=== PATIENT | female | born 1955 | race Caucasian/White ===

== ENCOUNTER 2020-11-07 13:04 | Outpatient (REF) | payer MEDICARE, MEDICAID, SELFPAY ==
--- NOTE | ~2020-11-07 | US_ITS ---
EXAMINATION: US SOFT TISSUE EXTREMITY, LEFT LOWER CLINICAL INFORMATION: Posterior left knee pain. Assess for popliteal fossa cyst. COMPARISON: Radiographs left knee 01/03/2018 TECHNIQUE: Real-time linear imaging of the left lower extremity is targeted to the popliteal fossa. Grayscale imaging and color Doppler are performed. FINDINGS: There is a small popliteal fossa cyst measuring only 0.7 x 2.2 x 1.6 cm. There is no associated color flow or hyperemia. No solid mass. No fluid seen tracking in soft tissue planes. US/US extremity nonvascular IMPRESSION: Small popliteal fossa cyst measuring only 0.7 x 2.2 x 1.6 cm.
== END 2020-11-07 13:05 | disposition home or self-care (01) ==
LOC: HO.US 13:04
PROVIDERS: Visit Provider Internal Medicine
DX: M25.562 Pain in left knee (principal)
CPT/HCPCS: 76882

== ENCOUNTER 2020-12-07 07:28 | Outpatient (REF) | payer MEDICARE, MEDICAID, SELFPAY ==
--- NOTE | ~2020-12-07 | XR_ITS ---
EXAMINATION: XR KNEE STANDING, BILATERAL XR KNEE, LEFT CLINICAL INFORMATION: Left knee pain. COMPARISON: 01/03/2018 TECHNIQUE: Standing AP view of both knees with lateral and patellar views of the left knee. FINDINGS: There is severe joint space narrowing about the medial joint space of the right knee with some marginal spurring. There is mild narrowing of the lateral joint space compartment of the right knee. Patient is status post left total knee arthroplasty with prosthetic components in good position. No evidence of prosthetic loosening. There is a minimal suprapatellar effusion seen. XR/XR knee LT 2V IMPRESSION: No significant change in appearance of the left knee status post total knee arthroplasty. Small left knee effusion. Degenerative change of the right knee on AP view, most significant involving the medial joint space compartment.
--- NOTE | ~2020-12-07 | XR_ITS ---
EXAMINATION: XR KNEE STANDING, BILATERAL XR KNEE, LEFT CLINICAL INFORMATION: Left knee pain. COMPARISON: 01/03/2018 TECHNIQUE: Standing AP view of both knees with lateral and patellar views of the left knee. FINDINGS: There is severe joint space narrowing about the medial joint space of the right knee with some marginal spurring. There is mild narrowing of the lateral joint space compartment of the right knee. Patient is status post left total knee arthroplasty with prosthetic components in good position. No evidence of prosthetic loosening. There is a minimal suprapatellar effusion seen. XR/XR knee standing BI IMPRESSION: No significant change in appearance of the left knee status post total knee arthroplasty. Small left knee effusion. Degenerative change of the right knee on AP view, most significant involving the medial joint space compartment.
== END 2020-12-07 07:29 | disposition home or self-care (01) ==
LOC: HO.HOSX 07:28
PROVIDERS: Visit Provider Physician Assistant
DX: T84.033A Mechanical loosening of internal left knee prosthetic joint, initial encounter (principal); T84.89XA Other specified complication of internal orthopedic prosthetic devices, implants and grafts, initial encounter; Z96.659 Presence of unspecified artificial knee joint
CPT/HCPCS: 73560; 73565; Q3014

== ENCOUNTER 2021-01-24 08:00 | Outpatient (RCR) | payer MEDICARE, MEDICAID, SELFPAY ==
--- NOTE | 2020-12-21 12:22 | MHC.PT.EP ---
[facility] [place] Office [place] Office [place] Office [address] Prashant Piper [address] [phone] F: [phone] F: [phone] F: [phone] F: [phone] Physical Therapy Plan of Care Date of Evaluation: Date of Surgery: 2016 Diagnosis: loose left TKA, post op stiffness replacement Assessment: The patient arrived reporting decreased ROM and strength in her left knee that is significantly reducing her functional mobility. She is unable to do her normal daily activities without severe modification. She is concerned as it seems to be getting worse. She would benefit from regular progressive stretching, patellar mobilizations, and quad and hamstring strengthening. However, the length of time it has been contracted will limit our improvement. In addition the patient has severe pain and she was self limiting to how much I could stretch her today. Frequency and Duration: The patient will be seen 2x/week x 4 weeks. Short Term Goals: 1. Pt to demonstrate understanding of initial HEP. 2. pt to be able to negotiate a 6 inch step safely for community ambulation 3. Pt to be able to demonstrate a proper heel to toe gait pattern using a SPC. Fdc Goals: 1. Pt to use LRAD that improves her gait pattern to decrease strain to lumbar. 2. The patient to be able to squat and bend for functional tasks without pain or ROM limitation. Treatment Plan: Modalities to reduce pain, spasms and effusion. Manual therapy to restore motion and function. Therapeutic exercise to improve strength and flexibility. Neuromuscular re-education for posture and balance. Therapeutic activities to return to functional activities of daily living. Electronically signed by: Kelly Lopez PT DPT Please sign and return to therapist. Thank you for your referral.
--- NOTE | 2021-01-27 13:23 | MHC.PT.DC ---
[facility] [place] Office [place] Office [address] Prashant Piper 140 [facility] [phone] F: [phone] F: [phone] F: [phone] F: [phone] Physical Therapy Discharge Report Diagnosis: loose left TKA, post op stiffness replacement Date of Surgery: 2016 Date of Evaluation: 12/21/20 Date of Discharge: 01/27/21 Treatments to Date: 10 Cancellations to Date: No Shows to Date: Discharge Status: Improved Function Independent with HEP Discharge Summary: Pt showing improved activity tolerance and less pain, but no real significant improvement in ROM Knee flexion is 68 degrees. At this point the patient is 90% independent. Planned d/c next visit with HEP. Electronically signed by: Kelly Lopez PT DPT Please sign and return to therapist. Thank you for your referral.
== END 2021-01-27 13:23 | disposition home or self-care (01) ==
LOC: HO.PT 08:00
PROVIDERS: PCP Internal Medicine; Visit Provider Physician Assistant
DX: T84.033A Mechanical loosening of internal left knee prosthetic joint, initial encounter (principal); T84.89XA Other specified complication of internal orthopedic prosthetic devices, implants and grafts, initial encounter; Z96.652 Presence of left artificial knee joint
CPT/HCPCS: 97110; 97112; 97116; 97140; 97162; 97530

== ENCOUNTER 2021-07-26 11:39 | Outpatient (REF) | payer MEDICARE, MEDICAID, SELFPAY ==
--- NOTE | ~2021-07-26 | MM_ITS ---
EXAMINATION: MM SCREENING DIGITAL BREAST TOMOSYNTHESIS, BILATERAL CLINICAL INFORMATION: Screening. Asymptomatic. The lifetime risk of breast cancer based on the Tyrer-Cuzick Model is 4%. COMPARISON: Mammography: 02/03/2019; outside mammography 05/06/2017 ([facility], [place], [place]). TECHNIQUE: Digital breast tomosynthesis is performed in both the craniocaudal and mediolateral oblique views along with computer-aided detection (CAD). Synthesized 2D images are generated from the tomosynthesis. FINDINGS: There are scattered areas of fibroglandular density (ACR BI-RADS breast composition Category b). There are no significant masses, abnormal calcifications, or other abnormalities. Parenchymal pattern is similar to prior studies. There is no developing density or architectural abnormality. The axilla and skin contours are unremarkable. No significant changes. MM/MM tomosynthesis screening BI IMPRESSION: No mammographic evidence of malignancy. ASSESSMENT: BI-RADS 1: Negative RECOMMENDATION: Routine annual mammography screening. This patient's information was entered into a reminder system with a target due date for their next mammogram.
== END 2021-07-26 11:40 | disposition home or self-care (01) ==
LOC: HO.MAMMO 11:39
PROVIDERS: Visit Provider Internal Medicine
DX: Z12.31 Encounter for screening mammogram for malignant neoplasm of breast (principal)
CPT/HCPCS: 77063; 77067

== ENCOUNTER 2022-02-08 | Outpatient (REF) | payer OTHER, MEDICAID, SELFPAY ==
--- NOTE | ~2022-02-08 | XR_ITS ---
EXAMINATION: XR SHOULDER, LEFT CLINICAL INFORMATION: Pain COMPARISON: None TECHNIQUE: 3 views of the left shoulder. FINDINGS: Bone alignment is normal. No fracture or dislocation. Normal glenohumeral joint. Mild arthritis at the acromioclavicular joint. Normal soft tissues. XR/XR shoulder LT min 2V IMPRESSION: Mild arthritis at the acromioclavicular joint.
== END 2022-02-08 00:01 | disposition home or self-care (01) ==
LOC: HO.HOSX
PROVIDERS: Visit Provider Physician Assistant
DX: S46.012A Strain of muscle(s) and tendon(s) of the rotator cuff of left shoulder, initial encounter (principal)
CPT/HCPCS: 20610; 73030; J1020

== ENCOUNTER 2022-02-13 10:00 | Outpatient (RCR) | payer MEDICARE, MEDICAID, SELFPAY ==
--- NOTE | 2022-01-12 16:08 | MHC.PT.EP ---
[facility] [place] Office [place] Office [place] Office [address] Neela Piper [address] [phone] F: [phone] F: [phone] F: [phone] F: [phone] Physical Therapy Plan of Care Date of Evaluation: Date of Surgery: Diagnosis: bilateral shoulder pain Assessment: Patient is a pleasant 66 y.o female who presents to PT with dx of bilateral shoulder pain, upon assessment she presents with adhesive capsulitis in L shoulder with impingement R shoulder, likely due to inactivity/immobility leading to muscle imbalances and tightness in capsules of shoulders. She presents with limited ROM, pain, weakness, difficulty with ADLs including dressing, bathing, doing her hair, and reaching. She would benefit from skilled PT to address aforementioned impairments and restore her functional mobility. Frequency and Duration: The patient will be seen 2x/week for 4 weeks Short Term Goals: 2 weeks Patient demonstrates consistency and independence with HEP to self manage symptoms. Patient presents with increased L shoulder flexion 120 degrees to be able to do her hair. Nursing Home Goals: Patient presents with increased L shoulder IR 50 degrees to reach behind her to pull up pants/underwear. 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 Treatment Plan: Modalities to reduce pain, spasms and effusion. Manual therapy to restore motion and function. Therapeutic exercise to improve strength and flexibility. Neuromuscular re-education for posture and balance. Therapeutic activities to return to functional activities of daily living. Electronically signed by: Yao Mae, PT, DPT Please sign and return to therapist. Thank you for your referral.
--- NOTE | 2022-03-14 16:20 | MHC.PT.DC ---
[facility] [place] Office [place] Office [place] Office [address] Prashant Piper [address] [phone] F: [phone] F: [phone] F: [phone] F: [phone] Physical Therapy Discharge Report Diagnosis: bilateral shoulder pain Date of Surgery: Date of Evaluation: 01/12/22 Date of Discharge: 03/14/22 Treatments to Date: 7 Cancellations to Date: No Shows to Date: 1 Discharge Status: Independent with HEP Discharge Summary: Patient was seen by orthopedic 02/08/22 and was given cortisone injection in her shoulder, is also being referred for shoulder MRI. She last attended PT 02/13/22 and did not show to her last session. She is discharged from PT at this time, can be re-referred after MRI if needed. Electronically signed by: Yao Mae, PT, DPT Please sign and return to therapist. Thank you for your referral.
== END 2022-03-14 16:21 | disposition home or self-care (01) ==
LOC: HO.PT 10:00
PROVIDERS: PCP Internal Medicine; Visit Provider Internal Medicine
DX: M25.511 Pain in right shoulder (principal); M25.512 Pain in left shoulder
CPT/HCPCS: 97035; 97110; 97140; 97162; 97530

== ENCOUNTER 2022-03-25 08:33 | Emergency (ER) | payer MEDICARE, SELFPAY ==
--- NOTE | ~2022-03-25 | CT_ITS ---
EXAMINATION: CT ABDOMEN AND PELVIS WITHOUT CONTRAST CLINICAL INFORMATION: 67-year-old female with left lower abdominal pain. COMPARISON: None TECHNIQUE: Multidetector volumetric imaging was performed from the superior aspect of the liver through the pubic symphysis. Sagittal and coronal reformatted images were obtained on the technologist's workstation. This CT examination was performed using dose optimization techniques as appropriate, variously including the following: *Automated exposure control *Adjustment of mA and/or kV according to patient size (this includes techniques or standardized protocols for targeted exams where dose is matched to indication/reason for exam; i.e. extremities or head) *Use of iterative reconstruction technique DLP: 820 mGy-cm FINDINGS: Visualized lung bases demonstrate mild dependent atelectasis. The liver is normal in size but demonstrates diffusely decreased attenuation. Punctate calcification noted within the inferior right hepatic lobe. The gallbladder is surgically absent. The pancreas, spleen and adrenal glands are unremarkable. Symmetrically sized kidneys. No renal calculi or hydronephrosis of either kidney. The stomach is decompressed. Normal caliber loops of small and large bowel. There is moderate colonic diverticulosis. There is a segmental area of mucosal thickening involving the proximal sigmoid colon with adjacent pericolonic stranding consistent with active diverticulitis. There is no complicating abscess. Normal appendix. Normal caliber abdominal aorta. Questionable peripherally calcified aneurysm of the distal right renal artery measuring up to 1.3 cm, suboptimally evaluated given lack of IV contrast. No retroperitoneal lymphadenopathy. The bladder is normal in appearance. The uterus is surgically absent. No gross free pelvic fluid. No inguinal lymphadenopathy. Moderate diffuse degenerative changes of the spine. Small sclerotic focus within the right ilium statistically represents a bone island. CT/CT abdomen pelvis wo IV con IMPRESSION: 1. Active diverticulitis of the sigmoid colon. No complicating abscess. 2. Diffusely decreased liver attenuation suggesting hepatic steatosis. Correlation with liver enzymes recommended. 3. Questionable peripherally calcified aneurysm of the distal right renal artery measuring up to 1.3 cm, suboptimally evaluated given lack of IV contrast. This can be further evaluated with nonemergent CTA imaging of the abdomen if clinically indicated. Fleischner guidelines were followed.
[2022-03-25 08:39] VITALS: BP 183/96; PULSE 95; RESP 20; TEMP 36.6; O2SAT 98; BMI 30.9
[2022-03-25 10:01] LABS: Basophils Percent Auto 0.2 % (0-2); Eosinophils Absolute Auto 0.1 X10*3/uL (0.0-0.4); Eosinophils Percent Auto 0.4 % (0-4); Hematocrit 40.1 % (37.0-47.0); Hemoglobin 13.4 g/dl (12.0-16.0); Imm Gran Abs Auto 0.09 X10*3/uL (0.00-0.03); Imm Gran Pct Auto 0.4 % (0.0-0.4); Lymphocytes Absolute Auto 3.8 X10*3/uL (1.2-4.9); Lymphocytes Percent Auto 18.8 % (20-40); MANUAL DIFF FLAG NO; Mean Corpuscular HGB Conc 33.4 g/dl (31.0-35.0); Mean Corpuscular Hemoglobin 28.6 pg (27.0-33.0); Mean Corpuscular Volume 85.5 fL (80.0-98.0); Mean Platelet Volume 10.9 fL (9.4-12.3); Monocytes Absolute Auto 1.4 X10*3/uL (0.1-1.2); Monocytes Percent Auto 6.8 % (2-11); Neutrophils Absolute Auto 14.9 x10*3/uL (2.0-8.3); Neutrophils Percent Auto 73.4 % (45-73); Platelet Count 340 X10*3/uL (160-400); Red Blood Count 4.69 X10*6/uL (4.20-5.50); Red Cell Distribution Width 12.5 % (11.0-16.0); White Blood Count 20.3 X10*3/uL (4.8-10.8)
[2022-03-25 10:19] LABS: Alanine Aminotransferase 22 U/L (0-31); Albumin Level 4.6 g/dL (3.5-5.0); Alkaline Phosphatase 81 U/L (39-117); Anion Gap 14 (12-20); Aspartate Amino Transferase 21 U/L (5-31); Bilirubin Direct 0.3 mg/dL (0.0-0.5); Bilirubin Total 0.8 mg/dL (0.0-1.0); Blood Urea Nitrogen 11 mg/dL (9-16); Carbon Dioxide 27 mmol/L (22-29); Chloride 104 mmol/L (96-108); Creatinine Clr Calc Pharmacy 74.2; Estimated Glomerular Filt Rate > 60; Glucose Random 137 mg/dL (60-115); Lipase 14 U/L (8-78); Potassium 4.3 mmol/L (3.3-5.1); Sodium 141 mmol/L (135-145); Total Protein 7.8 g/dL (6.5-8.0)
--- NOTE | 2022-03-25 11:12 | ED.ABDPAIN ---
HPI - Abdominal Pain General Chief Complaint: Abdominal Pain Stated Complaint: Lower abd pain Time Seen by Provider: 03/25/22 10:51 Source: patient Mode of arrival: ambulatory Limitations: no limitations History of Present Illness HPI narrative: patient with left lower quadrant pain since yesterday, patient has a history of diverticulitis, last flair was 2 years ago. No fever, no vomiting. She has soft stool and nausea. No dyuria, no hemturia MD elicited complaint: abdominal pain Pertinent past history: diverticulitis Onset (ago): day(s) Pain Consistency: constant Severity: mild Quality: fullness Radiation: none Associated symptoms: nausea Related Data Home Medications Medication Instructions Recorded Confirmed aspirin 81 mg tablet,delayed 81 mg PO DAILY 12/07/20 release atenolol 100 mg tablet 100 mg PO DAILY 12/07/20 atorvastatin 40 mg tablet 40 mg PO DAILY 12/07/20 biotin 2,500 mcg capsule 2,500 mcg PO DAILY 12/07/20 cane 12/07/20 cyclobenzaprine 5 mg tablet 10 mg PO TID 12/07/20 diclofenac sodium 1 % topical gel 2 g topical QID 12/07/20 diphenhydramine HCl 25 mg capsule 25 mg PO Q6H PRN 12/07/20 (Benadryl) gabapentin 300 mg capsule 300 mg PO DAILY 12/07/20 hydrochlorothiazide 12.5 mg capsule 12.5 mg PO DAILY 12/07/20 metformin 500 mg tablet 500 mg PO DAILY 12/07/20 pantoprazole 40 mg tablet,delayed 40 mg PO DAILY 12/07/20 release blood sugar diagnostic (OneTouch #10 ea 02/08/22 Verio test strips) blood-glucose meter (OneTouch #1 ea 02/08/22 Verio Flex Meter) lancets 33 gauge (OneTouch Delica #100 ea 02/08/22 Plus Lancet) losartan 50 mg tablet 100 mg PO DAILY 02/08/22 Previous Rx's Medication Instructions Recorded levofloxacin 500 mg tablet 500 mg PO DAILY 10 days #10 tabs 03/25/22 metronidazole 500 mg tablet 500 mg PO TID #30 tabs 03/25/22 Allergies Allergy/AdvReac Type Severity Reaction Status Date / Time Sulfa (Sulfonamide Allergy Unknown VAGINAL Unverified 02/08/22 12:40 Antibiotics) ISSUES [SULFA (SULFONAMIDE ANTIBIOTICS)] sulfa Allergy Unknown Unknown Uncoded 02/08/22 12:40 Review of Systems Review of Systems Yes all other systems are reviewed and are negative Gastrointestinal: Reports abdominal pain PMFSH Past Medical History Medical History (Updated 03/26/22 @ 00:01 by Aristides Gomes) Callus of foot Chronic GERD Diabetes mellitus Gait instability Hallux flexus of right foot HTN (hypertension) Nail lesion Obesity Osteoarthritis of both knees Sleep disorder Surgical History (Updated 12/07/20 @ 09:15 by Delonte Lopez Kizzy) H/O: hysterectomy Social History Social History (Updated 02/08/22 @ 12:51 by Mali Gregg Kizzy) Patient Tobacco Use Status: Never used Tobacco Current occupational status: unemployed Physical Exam ED Vital Signs: Vital Signs - 24 hr 03/25/22 08:39 Temperature 98 F Pulse Rate 95 Respiratory Rate 20 Blood Pressure 183/96 H Pulse Oximetry 98 Oxygen Delivery Method Room Air BMI result Body Mass Index 30.9 Const General: healthy appearing Nutritional Appearance: average body habitus Orientation/consciousness: oriented to person and patient oriented x3 Limitations: no limitations HENMT Head: Yes normal to inspection Ears: external ears normal General nose exam: Normal external nose present Mouth: Normal oral and palatal mucosa present and oropharynx normal Throat: Yes posterior oropharynx normal Eyes General: appearance normal, both eyes and all related structures Neck Neck: Yes normal visual inspection Chest Chest palpation & inspection: normal inspection of the chest Resp Auscultation: clear to auscultation bilaterally Cardio Jugular venous distension: no JVD Rate: regular rate Rhythm: regular rhythm Heart sounds: S1 normal heart sound present and S2 normal heart sound present GI Other: mild left lower abdominal pain Palpation (GI): Soft to palpation and No hepatosplenomegaly present Auscultation: normal bowel sounds General: Yes no CVA tenderness Back/Spine/Pelvis Back: no CVA tenderness Skin General skin exam: no rashes or lesions noted Neuro General: oriented to person and patient oriented x3 Cranial nerves: Yes CN's II-XII intact bilaterally Motor exam (neuro): 5/5 motor strength present throughout Extrem General: Yes normal to inspection Psych Appearance: grossly normal Course Reevaluation(s) Reevaluation #1: despite patient having a wBC of 20 patient is nontoxic appearing, will start iv abx levaquin/ flagyl and dc home Time: 14:11 Medical Decision Making Lab Data 03/25/22 09:56 12 09:56 Labs: Lab Results 03/25/22 03/25/22 Range/Units 09:56 09:56 WBC 20.3 H (4.8-10.8) X10*3/uL RBC 4.69 (4.20-5.50) X10*6/uL Hgb 13.4 (12.0-16.0) g/dl Hct 40.1 (37.0-47.0) % MCV 85.5 (80.0-98.0) fL MCH 28.6 (27.0-33.0) pg MCHC 33.4 (31.0-35.0) g/dl RDW 12.5 (11.0-16.0) % Plt Count 340 (160-400) X10*3/uL MPV 10.9 (9.4-12.3) fL Immature Gran % (Auto) 0.4 (0.0-0.4) % Neut % (Auto) 73.4 H (45-73) % Lymph % (Auto) 18.8 L (20-40) % [place] % (Auto) 6.8 (2-11) % Eos % (Auto) 0.4 (0-4) % Baso % (Auto) 0.2 (0-2) % Lymph # (Auto) 3.8 (1.2-4.9) X10*3/uL [place] # (Auto) 1.4 H (0.1-1.2) X10*3/uL Eos # (Auto) 0.1 (0.0-0.4) X10*3/uL Baso # (Auto) 0.0 (0.0-0.2) X10*3/uL Abs Immat Gran (auto) 0.09 H (0.00-0.03) X10*3/uL Absolute Neuts (auto) 14.9 H (2.0-8.3) x10*3/uL Absolute Nucleated RBC 0.000 (0.0-0.012) X10*3/uL Nucleated RBC % (auto) 0.0 (0.0-0.2) /100WBC Sodium 141 (135-145) mmol/L Potassium 4.3 (3.3-5.1) mmol/L Chloride 104 (96-108) mmol/L Carbon Dioxide 27 (22-29) mmol/L Anion Gap 14 (12-20) BUN 11 (9-16) mg/dL Creatinine 0.76 (0.5-1.4) mg/dL Estim Creat Clear Calc 74.2 Estimated GFR > 60 Random Glucose 137 H (60-115) mg/dL Calcium 10.0 (8.4-10.2) mg/dL Total Bilirubin 0.8 (0.0-1.0) mg/dL Direct Bilirubin 0.3 (0.0-0.5) mg/dL AST 21 (5-31) U/L ALT 22 (0-31) U/L Alkaline Phosphatase 81 (39-117) U/L Total Protein 7.8 (6.5-8.0) g/dL Albumin 4.6 (3.5-5.0) g/dL Lipase 14 (8-78) U/L Radiology Impression Discussion of test interpretation with radiology: I have reviewed the radiologist's reading. Radiologist Impression: IMPRESSION: 1.? Active diverticulitis of the sigmoid colon. No complicating abscess. 2.? Diffusely decreased liver attenuation suggesting hepatic steatosis. Correlation with liver enzymes recommended. 3.? Questionable peripherally calcified aneurysm of the distal right renal artery measuring up to 1.3 cm, suboptimally evaluated given lack of IV contrast. This can be further evaluated with nonemergent CTA imaging of the abdomen if clinically indicated. ? Fleischner guidelines were followed. Dictated By: Hawk Sewell MD Signed By: <Electronically signed by Hawk Sewell MD in [place]> 03/25/22 1240 Medications Administered Discontinued Medications Generic Name Dose Route Start Last Admin Trade Name Freq PRN Reason Stop Dose Admin Levofloxacin 500 mg in 100 mls @ 100 mls/hr 03/25/22 14:11 03/25/22 16:06 Levaquin IV 03/25/22 15:10 Infused ONCE ONE Infusion Metronidazole 500 mg in 100 mls @ 100 mls/hr 03/25/22 14:11 03/25/22 16:26 Flagyl IV 03/25/22 15:10 Infused ONCE ONE Infusion Discharge Plan Discharge Clinical Impression: Diverticulitis Patient Disposition: Home, Self-Care Instructions: Diverticulitis (ED) Prescriptions: New levofloxacin 500 mg tablet 500 mg PO DAILY 10 Days Qty: 10 0RF metronidazole 500 mg tablet 500 mg PO TID Qty: 30 0RF No Action (DME) cane Device See Rx Instructions .ROUTE Rx Instructions: As directed biotin 2,500 mcg capsule 2,500 mcg PO DAILY atenolol 100 mg tablet 100 mg PO DAILY gabapentin 300 mg capsule 300 mg PO DAILY diphenhydramine HCl [Benadryl] 25 mg capsule 25 mg PO Q6H PRN aspirin 81 mg tablet,delayed release (DR/EC) 81 mg PO DAILY pantoprazole 40 mg tablet,delayed release (DR/EC) 40 mg PO DAILY atorvastatin 40 mg tablet 40 mg PO DAILY metformin 500 mg tablet 500 mg PO DAILY hydrochlorothiazide 12.5 mg capsule 12.5 mg PO DAILY cyclobenzaprine 5 mg tablet 10 mg PO TID diclofenac sodium 1 % gel 2 g topical QID Rx Instructions: apply to single elbow, wrist or hand; for hand includes palm/fingers/back of hand losartan 50 mg tablet 100 mg PO DAILY (DME) lancets [OneTouch Delica Plus Lancet] 33 gauge misc See Rx Instructions .ROUTE DAILY Qty: 100 Rx Instructions: As directed (DME) OneTouch Verio test strips Strip See Rx Instructions .ROUTE DAILY Qty: 10 Rx Instructions: As directed (DME) blood-glucose meter [OneTouch Verio Flex meter] Misc See Rx Instructions .ROUTE DAILY Qty: 1 Rx Instructions: As directed Referrals: Abby Emery MD [Primary Care Provider] - 5 days Interventions: ED Discharge Assessment Last Done: 03/25/22 16:51 Discharge Date/Time: 03/25/22 16:52
[2022-03-25] MEDS: levoFLOXacin/D5W 500 MG/100 ML PIGGYBACK 100 MG IV (14:39)
[2022-03-25] MEDS: metroNIDAZOLE/NS 500 MG/100 ML PIGGYBACK 100 MG IV (15:25)
[2022-03-25 15:31] VITALS: BP 118/71; PULSE 87; O2SAT 95
== END 2022-03-25 16:52 | disposition home or self-care (01) ==
PROVIDERS: Emergency Provider Emergency Medicine; PCP Internal Medicine
DX: K57.32 Diverticulitis of large intestine without perforation or abscess without bleeding (principal); R10.32 Left lower quadrant pain; Z79.899 Other long term (current) drug therapy
CPT/HCPCS: 36415; 74176; 80048; 80076; 83690; 85025; 96365; 96366; 99284; J1956

== ENCOUNTER 2022-03-30 15:45 | Outpatient (REF) | payer MEDICARE, SELFPAY ==
--- NOTE | ~2022-03-30 | MR_ITS ---
EXAMINATION: MR CERVICAL SPINE WITHOUT CONTRAST CLINICAL INFORMATION: Neck/upper back pain radiating to left shoulder. COMPARISON: None available. TECHNIQUE: MRI of the cervical spine was performed using routine sequences without contrast. FINDINGS: The cervical vertebral bodies maintain normal heights and alignment. There is multilevel disc height loss which appears moderate to severe at C5-C6 and C6-C7. No bone marrow edema is seen. The cervical cord signal appears normal. The imaged portions of the intracranial contents and extraspinal soft tissues appear normal. SPINAL LEVELS: C2-C3: No posterior disc abnormality. No spinal canal or neural foraminal stenosis. C3-C4: No posterior disc abnormality. No spinal canal or neural foraminal stenosis. C4-C5: Shallow central protrusion. Mild facet arthropathy. No spinal canal or neural foraminal stenosis. C5-C6: Disc bulging with uncovertebral hypertrophy resulting in mild bilateral neural foraminal stenosis. No spinal canal stenosis. C6-C7: Disc bulging with uncovertebral hypertrophy resulting in mild bilateral neural foraminal stenosis. No spinal canal stenosis. C7-T1: Mild disc bulging. No spinal canal or neural foraminal stenosis. MR/MR cervical spine wo con IMPRESSION: Mild degenerative spondylosis without significant narrowing of the spinal canal or neural foramina. Disc height loss seen at C5-C6 and C6-C7.
== END 2022-03-30 15:46 | disposition home or self-care (01) ==
LOC: HO.MRI 15:45
PROVIDERS: Visit Provider Internal Medicine
DX: S46.812S Strain of other muscles, fascia and tendons at shoulder and upper arm level, left arm, sequela (principal); M54.2 Cervicalgia; M25.512 Pain in left shoulder
CPT/HCPCS: 72141

== ENCOUNTER 2022-07-20 11:10 | Outpatient (REF) | payer MEDICARE, SELFPAY ==
--- NOTE | ~2022-07-20 | MR_ITS ---
EXAMINATION: MR LUMBAR SPINE WITHOUT CONTRAST CLINICAL INFORMATION: Low back and leg pain. Claudication/gait disturbances. COMPARISON: None TECHNIQUE: MRI of the lumbar spine was obtained using routine sequences without contrast. FINDINGS: The lumbar vertebral bodies maintain normal heights. There is mild anterolisthesis of L4 on L5 and L5 on S1. There is severe disc height loss at L5-S1. A hypoplastic disc is seen at the S1-S2 level. There is no bone marrow edema. The distal spinal cord appears normal. The conus medullaris terminates normally at the L1-L2 level. The extraspinal soft tissues are unremarkable. SPINAL LEVELS: L1-L2: No posterior disc abnormality. No spinal canal or neural foraminal stenosis. L2-L3: No posterior disc abnormality. No spinal canal or neural foraminal stenosis. L3-L4: No posterior disc abnormality. No spinal canal or neural foraminal stenosis. L4-L5: Mild anterolisthesis with severe facet arthropathy resulting in mild spinal canal stenosis. Mild right neural foraminal stenosis with abutment of the extraforaminal right L4 nerve root segment. L5-S1: Disc bulging with central protrusion with severe facet arthropathy resulting in mild to moderate spinal canal stenosis and bilateral subarticular stenosis with abutment of the traversing right more than left S1 nerve root. Severe left neural foraminal stenosis with compression of the exiting left L5 nerve root. S1-S2: Hypoplastic disc. No spinal canal or neural foraminal stenosis. MR/MR lumbar spine wo con IMPRESSION: 1. 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 2. At L4-L5 there is mild anterolisthesis related to severe facet arthropathy resulting in mild spinal canal stenosis and abutment of the extraforaminal right L4 nerve root segment. 3. At L5-S1 there is mild to moderate spinal canal stenosis and bilateral subarticular stenosis with abutment of the traversing right more than left S1 nerve roots. Severe left neural foraminal stenosis with compression of the exiting left L5 nerve root.
== END 2022-07-20 11:11 | disposition home or self-care (01) ==
LOC: HO.MRI 11:10
PROVIDERS: PCP Internal Medicine; Visit Provider Internal Medicine
DX: M54.50 Low back pain, unspecified (principal); M25.552 Pain in left hip
CPT/HCPCS: 72148

== ENCOUNTER 2022-07-31 07:27 | Outpatient (REF) | payer OTHER, SELFPAY ==
--- NOTE | ~2022-07-31 | MM_ITS ---
EXAMINATION: MM SCREENING DIGITAL BREAST TOMOSYNTHESIS, BILATERAL CLINICAL INFORMATION: Screening. Asymptomatic. The lifetime risk of breast cancer based on the Tyrer-Cuzick Model is 3.2%. COMPARISON: Mammography: July 26, 2021 and studies dating back to May 06, 2017 TECHNIQUE: Digital breast tomosynthesis is performed in both the craniocaudal and mediolateral oblique views along with computer-aided detection (CAD). Synthesized 2D images are generated from the tomosynthesis. FINDINGS: There are scattered areas of fibroglandular density (ACR BI-RADS breast composition Category b). There are no significant masses, abnormal calcifications, or other abnormalities. MM/MM tomosynthesis screening BI IMPRESSION: No significant changes from prior exam. ASSESSMENT: BI-RADS 1: Negative RECOMMENDATION: Routine annual mammography screening. This patient's information was entered into a reminder system with a target due date for their next mammogram.
== END 2022-07-31 07:28 | disposition home or self-care (01) ==
LOC: HO.MAMMO 07:27
PROVIDERS: PCP Internal Medicine; Visit Provider Internal Medicine
DX: Z12.31 Encounter for screening mammogram for malignant neoplasm of breast (principal)
CPT/HCPCS: 77063; 77067

== ENCOUNTER 2022-09-02 19:41 | Emergency (ER) | payer OTHER, SELFPAY ==
[2022-09-02 19:45] VITALS: BP 127/84; BP 160/100; PULSE 82; PULSE 92; RESP 24; O2SAT 95; BMI 29.0
--- NOTE | 2022-09-02 19:54 | PC.NURSE ---
spoke w poision control at 1954, per pt consumed 10ox of water/bleach mixture and is reporting some pain in throat with increased throat clearing, pt is managing secretions, per poison control no labs needed, plan for observation and NPO until 2099 followed by PO challenge.
--- NOTE | 2022-09-02 19:55 | ED.GENADULT ---
HPI - General Adult General Chief complaint: General Medical Stated complaint: Toxic Ingestion Time Seen by Provider: 09/02/22 19:54 Source: patient, RN notes reviewed, old records reviewed and hand gluer and slicer Mode of arrival: EMS Limitations: language barrier History of Present Illness HPI narrative: 67-year-old female presents for evaluation of ?I accidentally drank bleach. ? Patient reports that she was thirsty. She reports that she grabbed a glass of water that had ?about 3 fingers full of clear liquid. She thought this was water and then filled the class up with more cold water She then drank about 10-12 oz She has felt a burning in his throat and found out that the glass on the counter was accurate bleach which she diluted down and then drank Denies any wheezing or trouble breathing She complains of a burning in her throat Related Data Home Medications Medication Instructions Recorded Confirmed aspirin 81 mg tablet,delayed 81 mg PO DAILY 12/07/20 release atenolol 100 mg tablet 100 mg PO DAILY 12/07/20 atorvastatin 40 mg tablet 40 mg PO DAILY 12/07/20 biotin 2,500 mcg capsule 2,500 mcg PO DAILY 12/07/20 cane 12/07/20 cyclobenzaprine 5 mg tablet 10 mg PO TID 12/07/20 diclofenac sodium 1 % topical gel 2 g topical QID 12/07/20 diphenhydramine HCl 25 mg capsule 25 mg PO Q6H PRN 12/07/20 (Benadryl) gabapentin 300 mg capsule 300 mg PO DAILY 12/07/20 hydrochlorothiazide 12.5 mg capsule 12.5 mg PO DAILY 12/07/20 metformin 500 mg tablet 500 mg PO DAILY 12/07/20 pantoprazole 40 mg tablet,delayed 40 mg PO DAILY 12/07/20 release blood sugar diagnostic (Gamblit Gaminguch #10 ea 02/08/22 Verio test strips) blood-glucose meter (DynadmicTouch #1 ea 02/08/22 Verio Flex Meter) lancets 33 gauge (DynadmicTouch Michael #100 ea 02/08/22 Plus Lancet) losartan 50 mg tablet 100 mg PO DAILY 02/08/22 Previous Rx's Medication Instructions Recorded levofloxacin 500 mg tablet 500 mg PO DAILY 10 days #10 tabs 03/25/22 metronidazole 500 mg tablet 500 mg PO TID #30 tabs 12/18/22 Allergies Allergy/AdvReac Type Severity Reaction Status Date / Time Sulfa (Sulfonamide Allergy Unknown VAGINAL Verified 09/02/22 21:01 Antibiotics) ISSUES [SULFA (SULFONAMIDE ANTIBIOTICS)] sulfa Allergy Unknown Unknown Uncoded 02/08/22 12:40 Review of Systems Constitutional: Constitutional: Denies body ache(s), Denies chills and Denies fever(s) ENT: Reports sore throat, Denies throat swelling and Denies tongue swelling Cardiovascular: Cardiovascular: Denies dyspnea Respiratory: Respiratory: Denies cough and Denies dyspnea Gastrointestinal: Gastrointestinal: Denies abdominal pain, Denies nausea and Denies vomiting Musculoskeletal: Musculoskeletal: Denies back pain Integumentary/Breasts: Skin/Breast: Denies rash Allergic/Immunologic: Allergic/Immunologic: Denies throat swelling and Denies tongue swelling PMFSH Past Medical History Medical History (Updated 09/02/22 @ 21:46 by Bret Beltran) Callus of foot Chronic GERD Diabetes mellitus Gait instability Hallux flexus of right foot HTN (hypertension) Nail lesion Obesity Osteoarthritis of both knees Sleep disorder Surgical History (Updated 12/07/20 @ 09:15 by Delonte Lopez [facility]) H/O: hysterectomy Social History Social History (Updated 02/08/22 @ 12:51 by Mali Gregg [facility]) Alcohol intake: never Patient Tobacco Use Status: Never used Tobacco Smoked in Last 30 Days: No Use of substances other than those prescribed or required for medical reasons: No Advance Directives: No Advance Directives Information Provided: No Current occupational status: unemployed Physical Exam ED Vital Signs: Vital Signs - 24 hr 09/02/22 19:45 09/02/22 20:00 Pulse Rate 82 79 Respiratory Rate 24 H 18 Blood Pressure 127/84 130/78 Pulse Oximetry 95 95 Oxygen Delivery Method Room Air Room Air BMI result Body Mass Index 29.0 Const General: healthy appearing, comfortable, no acute distress, alert and awake Nutritional Appearance: well nourished Orientation/consciousness: patient oriented x3 HENMT Head: Yes normocephalic and Yes atraumatic Throat: Yes posterior oropharynx normal and Yes tonsils normal Eyes Eyelids: Yes eyelids normal Conjunctivae: conjunctivae normal Sclerae: sclerae normal Corneas: corneas normal Pupils: Equal, round and reactive pupils present EOM: EOMs intact bilaterally Neck Neck: Yes full ROM Resp Effort & Inspection: normal respiratory effort, able to speak in complete sentences, no audible wheezes and not labored Auscultation: clear to auscultation bilaterally Cardio Rate: regular rate Rhythm: regular rhythm GI Inspection: No distended Palpation (GI): Soft to palpation, not firm, nontender, no guarding and not rigid Auscultation: normoactive bowel sounds Skin General skin exam: no rashes or lesions noted and elasticity normal Neuro General: patient oriented x3 Cranial nerves: Yes Equal, round and reactive pupils present and Yes Bilaterally intact EOM present Cognition (Neuro): normal cognition Extrem Other: Moving all extremities well without any obvious deformities Course Reevaluation(s) Reevaluation #1: Patient passed a p.o. challenge, reports feeling much better Time: 21:44 Medications Administered Discontinued Medications Generic Name Dose Route Start Last Admin Trade Name Freq PRN Reason Stop Dose Admin Acetaminophen 975 mg 09/02/22 20:48 09/02/22 20:56 Acetaminophen 325 Mg Tablet PO 09/02/22 20:49 975 mg ONCE ONE Administration Medical Decision Making Medical Decision Making MDM Narrative: Patient ingested a small amount of household bleach. He was also dilated further. She has mild burning in the throat but no objective findings on exam. No evidence of retropharyngeal edema, no wheezing stridor exam. The patient reports that she does not believe she inhaled the of the fumes. Nursing staff spoke with poison control who recommended keeping the patient NPO for 1 hour and then p.o. trial during the patient but does not require any labs or imaging. Differential Diagnosis Differential Diagnoses: The differential diagnosis associated with the presentation includes Esophagitis Toxic ingestion Caustic injury Gastritis Discharge Plan Discharge Clinical Impression: Esophagitis, Accidental ingestion of caustic alkali Patient Disposition: Home, Self-Care Instructions: Corrosive Esophagitis (ED) Additional Instructions: Use Tylenol as needed for your pain. Follow-up with your primary doctor You may drink cold beverages and have ice cream to help dull the pain over the next day or so Prescriptions: No Action levofloxacin 500 mg tablet 500 mg PO DAILY 10 Days Qty: 10 0RF metronidazole 500 mg tablet 500 mg PO TID Qty: 30 0RF (DME) cane Device See Rx Instructions .ROUTE Rx Instructions: As directed biotin 2,500 mcg capsule 2,500 mcg PO DAILY atenolol 100 mg tablet 100 mg PO DAILY gabapentin 300 mg capsule 300 mg PO DAILY diphenhydramine HCl [Benadryl] 25 mg capsule 25 mg PO Q6H PRN aspirin 81 mg tablet,delayed release (DR/EC) 81 mg PO DAILY pantoprazole 40 mg tablet,delayed release (DR/EC) 40 mg PO DAILY atorvastatin 40 mg tablet 40 mg PO DAILY metformin 500 mg tablet 500 mg PO DAILY hydrochlorothiazide 12.5 mg capsule 12.5 mg PO DAILY cyclobenzaprine 5 mg tablet 10 mg PO TID diclofenac sodium 1 % gel 2 g topical QID Rx Instructions: apply to single elbow, wrist or hand; for hand includes palm/fingers/back of hand losartan 50 mg tablet 100 mg PO DAILY (DME) lancets [DynadmicTouch Delica Plus Lancet] 33 gauge [facility] See Rx Instructions .ROUTE DAILY Qty: 100 Rx Instructions: As directed (DME) DynadmicTouch Verio test strips Strip See Rx Instructions .ROUTE DAILY Qty: 10 Rx Instructions: As directed (DME) blood-glucose meter [OneTouch Verio Flex meter] [facility] See Rx Instructions .ROUTE DAILY Qty: 1 Rx Instructions: As directed
[2022-09-02 20:00] VITALS: BP 130/78; PULSE 79; RESP 18; O2SAT 95
--- NOTE | 2022-09-02 20:15 | PC.NURSE ---
pt a&ox4, vss, reporting accidental consumption of ~10oz of a bleach/water mixture at around 1900, pt reports slight burning in throat, denies any pain, NPO until 2099 per poison control.
[2022-09-02] MEDS: Acetaminophen 325 MG TABLET 975 MG PO (20:56)
--- NOTE | 2022-09-02 20:58 | PC.NURSE ---
pt medicated per JUN, PO challenged per poison control instructions.
== END 2022-09-02 22:10 | disposition home or self-care (01) ==
PROVIDERS: Emergency Provider Emergency Medicine; PCP Internal Medicine
DX: K20.90 Esophagitis, unspecified without bleeding (principal); Z79.899 Other long term (current) drug therapy
CPT/HCPCS: 99284

== ENCOUNTER → 2022-12-04 12:15 | Outpatient (BNVA) | payer OTHER, SELFPAY | PROVIDERS: PCP Internal Medicine; Visit Provider Nurse Practitioner ==

== ENCOUNTER 2023-03-12 08:00 | Outpatient (REF) | payer OTHER, SELFPAY ==
[2023-03-12 12:29] LABS: Alanine Aminotransferase 21 U/L (0-31); Albumin Level 4.4 g/dL (3.5-5.0); Alkaline Phosphatase 80 U/L (39-117); Aspartate Amino Transferase 29 U/L (5-31); Bilirubin Direct 0.2 mg/dL (0.0-0.5); Bilirubin Total 0.5 mg/dL (0.0-1.0); Total Protein 7.9 g/dL (6.5-8.0)
[2023-03-12 12:38] LABS: Cholesterol 169 mg/dL (<200); HDL Cholesterol 51 mg/dL (>40); LDL Cholesterol Calculated 104 mg/dL (<100); Triglycerides 70 mg/dL (<150)
[2023-03-12 12:58] LABS: Reflex LDLD? No
== END 2023-03-12 08:01 | disposition home or self-care (01) ==
LOC: HO.HHCL 08:00
PROVIDERS: Visit Provider Internal Medicine
DX: E11.9 Type 2 diabetes mellitus without complications (principal); E78.00 Pure hypercholesterolemia, unspecified
CPT/HCPCS: 36415; 80061; 80076

== ENCOUNTER 2023-10-07 12:22 | Outpatient (REF) | payer OTHER, SELFPAY | END 2023-10-07 12:23 | disposition home or self-care (01) | LOC: HO.MAMMO 12:22 | PROVIDERS: PCP Internal Medicine; Visit Provider Internal Medicine | DX: Z12.31 Encounter for screening mammogram for malignant neoplasm of breast (principal) | CPT/HCPCS: 77063; 77067 ==

== ENCOUNTER → 2023-10-07 12:45 | Outpatient (BNV) | payer OTHER, SELFPAY | PROVIDERS: PCP Internal Medicine; Visit Provider Radiology Diagnostic Radiology | DX: Z12.31 Encounter for screening mammogram for malignant neoplasm of breast (principal) | CPT/HCPCS: 77063; 77067 ==

== ENCOUNTER 2024-07-28 08:25 | Outpatient (REF) | payer OTHER, SELFPAY ==
--- OUTSIDE RECORDS SUMMARY | 2024-07-28 08:45 | XMS_ITS | Clinical Summary ---
Author Organization [employer] [facility] ity Address [address] [place] [address] Care Team Providers Care Singeing Torch Operator Name Role Phone Unavailable Primary Care Provider Unavailabl e Social History Tobacco Use Types Packs/Day Years Used Date Smoking Tobacco: Never Assessed Comments Unknown Sex and Gender Information Value Date Recorded Sex Assigned at Not on file Legal Sex Female 2:31 PM EST Gender Identity Not on file Sexual Orientation Not on file Plan of Treatment Health Maintenance Due Date Last Done Comments Breast Cancer Screening 1955 DTaP,Tdap,and Td Vaccines (1 - Tdap) 1974 Pneumococcal Vaccine: 50+ Ye ars (1 of 1 - PCV) 2005 Zoster Vaccines (1 of 2) 2005 COVID-19 Vaccine ( - 2023-2 5 season) 2023 Influenza Vaccine (Season Ended) 2024 RSV Immunization Adult Patie nts (1 - 1-dose 75+ series) 2030 HIB Vaccines Aged Out No longer eligi ble based on patient's age to complete this topic HPV Vaccines Aged Out No longer eligi ble based on patient's age to complete this topic Hepatitis A Vaccines Aged Out No long er eligible based on patient's age to complete this topic Hepatitis B Vaccines Aged Out No long er eligible based on patient's age to complete this topic IPV Vaccines Aged Out No longer eligi ble based on patient's age to complete this topic MMR Vaccines Aged Out No longer eligi ble based on patient's age to complete this topic Meningococcal ACWY Vaccine Aged Out N o longer eligible based on patient's age to complete this topic Meningococcal B Vaccine Aged Out No l onger eligible based on patient's age to complete this topic RSV Immunization Patients Un lindsey 20 months Aged Out No longer eligible b ased on patient's age to complete this topic Varicella Vaccines Aged Out No longer eligible based on patient's age to complete this topic
--- OUTSIDE RECORDS SUMMARY | 2024-07-28 08:45 | XMS_ITS | Encounter Summary ---
Author Organization [employer] [facility] Address [address] [place] [address] [address] [place] [address] Care Team Providers Care Paint Spray Tender Name Role Phone Abby Emery MD Primary Care Provider + Encounter Details Date Type Department Care Team ([facility] st Contact Info) Description 03/06/2022 Abstract [facility] MEDICINE [address] [place] [address] Provider, MD [place] Social History Tobacco Use Types Packs/Day Years Used Date Smoking Tobacco: Never Assessed Comments Unknown Sex and Gender Information Value Date Recorded Sex Assigned at Female 02/05/2022 10:33 AM EDT Legal Sex Female 10:33 AM EDT Gender Identity Female 02/05/2022 10:33 AM EDT Sexual Orientation Straight 02/05/2022 10 :33 AM EDT documented as of this encounter Plan of Treatment Not on file documented as of this encounter Visit Diagnoses Not on filedocumented in this encounter Care Teams Paint Spray Tender Relationship Specialty Start Date End Date Abby Emery MD [address] [place] [address] PCP - General Family Medicine 06/06/18 documented as of this encounter
--- OUTSIDE RECORDS SUMMARY | 2024-07-28 08:46 | XMS_ITS | Encounter Summary ---
Author Organization [employer] Address [address] [place] [address] [address] [place] [address] Care Team Providers Care Accounting Instructor Name Role Phone Abby Emery MD Primary Care Provider + Encounter Details Date Type Department Care Team (Late st Contact Info) Description 06/04/2022 Orders Only [facility] MED & PEDS [address] [place] [address] Claudia Billingsley LPN Social History Tobacco Use Types Packs/Day Years Used Date Smoking Tobacco: Former Cigarettes Smokeless Tobacco: Never Alcohol Use Standard Drinks/Week Comments Never 0 (1 standard drink = 0.6 oz pur e alcohol) Comments Unknown Sex and Gender Information Value [...] on filedocumented in this encounter Care Teams Accounting Instructor Relationship Specialty Start Date End Date Abby Emery MD [address] [place] [address] PCP - General Family Medicine 06/06/18 documented as of this encounter
--- OUTSIDE RECORDS SUMMARY | 2024-07-28 08:46 | XMS_ITS | Encounter Summary ---
Author Organization [employer] Address [address] [facility] [address] [place] [address] Care Team Providers Care Violin Teacher Name Role Phone Abby Emery MD Primary Care Provider + Reason for Visit * Reason Comments Med Refill Encounter Details Date Type Department Care Team ([facility] st Contact Info) Description 04/03/2023 Refill [facility] MEDICINE [address] [place] [address] Abby Emery MD [address] [place] [address] Sprain of left rotator cuff capsule, subsequent encounter; Acute exacerbation of chronic low back pain Social History Tobacco Use Types Packs/Day Years Used Date Smoking Tobacco: Former Cigarettes Smokeless Tobacco: Never Alcohol Use Standard Drinks/Week Comments Never 0 (1 standard drink = 0.6 oz pur e alcohol) Depression Answer Date Recorded Patient Health Questionnaire-9 Score 21 06/21/2022 Housing Stability Answer Date Recorded What is your housing situation today? I have christ zurita 01/21/[address] you li ve. Do you have problems with any of the following? None of the above 01/21/2023 Food Insecurity Answer Date Recorded Within the past 12 months, y ou worried that your food would run out before you got money to buy more: Never True 01/21/2023 Within the past 12 months,th e food you bought just didn't last and you didn't have enough money to get more: Never True Transportation Answer Date Recorded In the past 12 months, has l ack of transportation kept you from medical appts, meetings, work or from getting things needed for daily living? No 01/21/2023 Utilities Answer Date Recorded In the past 12 months, has t he electric, gas, oil or water company threatened to shut off services in your home? No 01/21/2023 Depression Answer Date Recorded Patient Health Questionnaire-2 Score 6 06/21/2022 Comments Unknown Sex and Gender Information Value Date Recorded Sex Assigned at Female 02/05/2022 10:33 AM EDT Legal Sex Female 10:33 AM EDT Gender Identity Female 02/05/2022 10:33 AM EDT Sexual Orientation Straight 02/05/2022 10 :33 AM EDT documented as of this encounter Plan of Treatment Not on file documented as of this encounter Visit Diagnoses Diagnosis Sprain of left rotator cuff capsule, subsequent encounter Acute exacerbation of chronic low back pain documented in this encounter Additional Health Concerns Assessment Noted Time PHQ-9 Depression Total Score: 21 023 10:45 AM EDT documented as of this encounter Care Teams Violin Teacher Relationship Specialty Start Date End Date Abby Emery MD [address] [place] [id number] PCP - General Family Medicine 06/06/18 documented as of this encounter
--- OUTSIDE RECORDS SUMMARY | 2024-07-28 08:46 | XMS_ITS | Encounter Summary ---
Author Organization [employer] Address [address] [facility] [address] [place] [address] Care Team Providers Care Leave Manager Name Role Phone Abby Emery MD Primary Care Provider + Reason for Visit * Reason Onset Date Comments Durable Medical Equipment 02/07/2023 Commod e Encounter Details Date Type Department Care Team ([facility] st Contact Info) Description 02/07/2023 Telephone [facility] MEDICINE [address] [place] [address] bAby Emery MD [address] [place] [address] Durable Medical Equipment (Commode) Social History Tobacco Use Types Packs/Day Years [...] AM EDT documented as of this encounter Miscellaneous Notes * Telephone Encounter - Eduarda Nicole - 02/07/2023 10:35 AM EDT Request received from [facility] for an order for a Commode. Order was generated and placed on provider desk for review and signature. * Telephone Encounter - Cynthia Ordonez - 02/07/2023 8:51 AM EDT Tc from jung with [facility] requesting script for commode to be faxed to [phone] documented in this encounter Plan of Treatment Not on file documented as of this encounter Visit Diagnoses Not on filedocumented in this encounter Additional Health Concerns Assessment Noted Time PHQ-9 Depression Total Score: 21 023 10:45 AM EDT documented as of this encounter Care Teams Leave Manager Relationship Specialty Start Date End Date Abby Emery MD [address] [place] [id number] PCP - General Family Medicine 06/06/18 documented as of this encounter
--- OUTSIDE RECORDS SUMMARY | 2024-07-28 08:46 | XMS_ITS | Encounter Summary ---
Author Organization [employer] Address [address] [place] [address] [address] [place] [address] Care Team Providers Care Diet Supervisor Name Role Phone Abby Emery MD Primary Care Provider + Reason for Visit * Reason Comments Follow-up Encounter Details Date Type Department Care Team (Latest Contact Info) Description 07/24/2024 9:00 AM EDT Office Visit [facility] MEDICINE [address] [place], [place] [phone] Abby Emery MD [address] [place], [place] [phone] Type 2 diabetes mellitus without complication, without long-term current use of insulin (CMS/HCC) (Primary Dx); HTN (hypertension), benign; Lumbosacral radiculopathy due to degenerative joint disease of spine; Hyperlipidemia associated with type 2 diabetes mellitus (CMS/HCC); Class 1 obesity due to excess calories with serious comorbidity and body mass index (BMI) of 30.0 to 30.9 in adult; Screening for colon cancer; Dietary counseling; Exercise counseling Social History Tobacco Use Types Packs/Day Years Used Date Smoking Tobacco: Former Cigarettes Smokeless Tobacco: Never Tobacco Cessation:Counseling Given: Not Answered Alcohol Use Standard Drinks/Week Comments Never 0 (1 standard drink = 0.6 oz pur e alcohol) Depression Answer Date Recorded Patient Health Questionnaire-9 Score 6 10/04/2023 Patient Health Questionnaire-9 Score 6 10/04/2023 Last PHQ-9: Questionnaire Data Not on file 0 10/04/2023 Housing Stability Answer Date Recorded What is [...] Answer Date Recorded Patient Health Questionnaire-2 Score 2 10/04/2023 Internet Access Answer Date Recorded Internet Access Q1 Yes 07/15/2024 Internet Access Q2 Not on file 07/15/2024 Comments Unknown Sex and Gender Information Value Date Recorded Sex Assigned at Female 02/05/2022 10:33 AM EDT Legal Sex Female 10:33 AM EDT Gender Identity Female 02/05/2022 10:33 AM EDT Sexual Orientation Straight 02/05/2022 10 :33 AM EDT documented as of this encounter Last Filed Vital Signs Vital Sign Reading Time Taken Comments Blood Pressure 130/59 07/24/2024 8:54 AM EDT Pulse 70 07/24/2024 8:54 AM EDT Temperature 36.4 ??C (97.6 ??F) 07/24/2024 8:54 AM ED T Respiratory Rate - - Oxygen Saturation 96% 07/24/2024 8:54 AM EDT Inhaled Oxygen Concentration - - Weight 81.6 kg (180 lb) 07/24/2024 8:54 AM EDT Height 162.6 cm (5' 4 ) 07/24/2024 8:54 AM EDT Body Mass Index 30.9 07/24/2024 8:54 AM EDT documented in this encounter Progress Notes * Abby Emery MD - 07/24/2024 9:00 AM EDT SUBJECTIVE: Jessica Rasheed is a 69 y.o. year old female who presents for follow up DM/htn. Denies recent illness, injury, or hospitalization. Patient here for follow-up, overall she is doing well she had URI approximately a month ago that resolved in less than a week. She has not been hospitalized and is taking all her medications. She takes Tylenol or diclofenac as needed for pains (approximately once per week). She saw ophthalmology less than a year ago and sees her dentist at least once per year, approximately 2 months ago. She did not schedule colonoscopy last year, she feels that she does not want to have the test done.She denies melena, weight loss, bright red blood per rectum or constipation. Her blood sugars at home run 1 20-1 60s, no hypoglycemia and she is taking metformin daily. She is trying to be active every day and tries to cut down on high carb meals. Acute Concerns: Social History Social History Narrative Not on file Patient Active Problem List Diagnosis COVID-19 Type 2 diabetes mellitus without complication, without long-term current use of insulin (CMS/HCC) Sprain of left rotator cuff capsule Left shoulder pain Trapezius strain, left, sequela Adjustment disorder with depressed mood Chronic pain of both shoulders Disorder of nail Foot callus Gait disturbance Gastroesophageal reflux disease without esophagitis Hallux valgus H/O: hysterectomy Hyperlipidemia associated with type 2 diabetes mellitus (CMS/HCC) Knee pain Loss of hair Primary osteoarthritis of left knee Obesity Subacute vaginitis Vasovagal syncope History of hysterectomy for benign disease Sleep disorder Acute exacerbation of chronic low back pain Left hip pain DDD (degenerative disc disease), cervical Visit for preventive health examination Tinea corporis Lumbosacral radiculopathy due to degenerative joint disease of spine Spinal stenosis at L4-L5 level HTN (hypertension), benign Generalized abdominal pain Blood in stool Left leg pain Gastrointestinal hemorrhage No family history on file. Review of Systems Constitutional: Negative for chills, fatigue and fever. HENT: Negative for congestion, ear pain, nosebleeds, rhinorrhea, sinus pressure, sore throat and trouble swallowing. Eyes: Negative for pain and discharge. Respiratory: Negative for cough, chest tightness and shortness of breath. Cardiovascular: Negative for chest pain, palpitations and leg swelling. Gastrointestinal: Negative for abdominal pain, blood in stool, constipation, diarrhea and nausea. Endocrine: Negative for polydipsia and polyuria. Genitourinary: Negative for dysuria, frequency, genital sores, pelvic pain and vaginal discharge. Musculoskeletal: Positive for back pain. Negative for neck pain. Skin: Negative for rash. Hair loss Allergic/Immunologic: Negative for environmental allergies. Neurological: Negative for dizziness, seizures, weakness, light-headedness and headaches. Hematological: Negative for adenopathy. Psychiatric/Behavioral: Negative for agitation, behavioral problems, self-injury and suicidal ideas. OBJECTIVE: Vitals: 07/24/24 0854 BP: 130/59 Pulse: 70 Temp: 97.6 ??F (36.4 ??C) SpO2: 96% Physical Exam HENT: Right Ear: Tympanic membrane and ear canal normal. Left Ear: Tympanic membrane and ear canal normal. Mouth/Throat: Mouth: Mucous membranes are moist. Pharynx: No oropharyngeal exudate or posterior oropharyngeal erythema. Eyes: Pupils: Pupils are equal, round, and reactive to light. Cardiovascular: Rate and Rhythm: Regular rhythm. Pulses: Normal pulses. Heart sounds: Normal heart sounds. No murmur heard. Pulmonary: Breath sounds: Normal breath sounds. Abdominal: General: Bowel sounds are normal. Palpations: Abdomen is soft. Tenderness: There is no abdominal tenderness. Musculoskeletal: General: Normal range of motion. Cervical back: Neck supple. Skin: General: Skin is warm. Neurological: General: No focal deficit present. Mental Status: She is alert and oriented to person, place, and time. Psychiatric: Mood and Affect: Mood normal. Behavior: Behavior normal. Office Visit on 07/24/2024 Component Date Value Ref Range Status Glucose Blood, POC 07/24/2024 171 60 - 200 mg/dL Final QC Media Lot # 07/24/2024 [id number] Final Lot# Expiration Date 07/24/2024 101,425 Final Hemoglobin A1C 07/24/2024 6.8 (A) 4.0 - 6.0 % Final QC Media Lot # 07/24/2024 [id number] Final Lot# Expiration Date 07/24/2024 120,526 Final Problem List Items Addressed This Visit Type 2 diabetes mellitus without complication, without long-term current use of insulin ([facility]) -Primary Controlled. A1c is at goal. Continue on Metformin bid Counseled re more frequent low calorie/carb meals. Check fgstk 1x daily Encouraged physical activity as tolerated. FU in 4-6 months. Advised to schedule an appointment with eye clinic Foot examination is normal, no diabetic neuropathy Dental examination up-to-date, recommended to have dental prophylaxis every 6 months She declined COVID, influenza, PCV or Tdap today. Advised to have them at her earliest convenience and add zoster immunization as well. Relevant Orders POCT Glucose (Completed) POCT HGB A1C (Completed) Albumin, Random Urine W/Creatinine Comprehensive Metabolic Panel Vitamin D, 25-Hydroxy, Total, Immunoassay TSH with Reflex to Free T4 HTN (hypertension), benign Controlled, BP is at goal Continue lisinopril/hctz + Atenolol same dose Counseled re low salt diet/increase moderate physical activity. Check home BP BIW and prn CP/PITTMAN/AMBROSE Non smoking patient. Fu w me in 6 month with labs Lumbosacral radiculopathy due to degenerative joint disease of spine Doing well on Tylenol or diclofenac as needed. Advised not to take diclofenac daily due to GI and renal side effects. Will check BMP Recommended stretching exercises, contact a puncture or chronic pain clinic. She declined physical therapy Recommended to be as active as she can and wear appropriate shoes Hyperlipidemia associated with type 2 diabetes mellitus (CMS/HCC) She has been out of Lipitor for more than 6 months, will repeat lipid profile and restart if needed. We discussed re rx options. Recommended moderate amount of exercise and increase consumption of fruit, vegetables, fish and high fiber foods. Should decrease consumption of highly saturated fats or trans fats. Follow-up in 6 months or I will call her earlier as needed for abnormal labs Relevant Orders Lipid Panel with Reflex to Direct LDL Obesity Discussed re weight reduction options including exercise, life style modifications, diet. Recommended to decrease soda and sugary beverage consumption, increase protein intake with meals (at least 1 portion of protein with each meal) to assist with satiety, increase dietary fiber Recommended at least 150 min/week of moderate intensity exercise. Declined/wants a referral to dietitian Other Visit Diagnoses Screening for colon cancer Declined colonoscopy, will order Cologuard Relevant Orders Cologuard?? colon cancer screening Dietary counseling Exercise counseling Follow Up: Current Outpatient Medications on File Prior to Visit Medication Sig Dispense Refill acetaminophen (Tylenol) 500 MG tablet take 1- 2 tablet by oral route every 8-12 hours as needed notto exceed 8 tablets per 24hrs atenolol (Tenormin) 100 MG tablet TAKE 1 TABLET BY MOUTH ONCE DAILY IN THE MORNING 30 tablet 11 atorvastatin (Lipitor) 40 MG tablet Take 1 tablet (40 mg) by mouth in the morning. 30 tablet 11 Blood Glucose Monitoring Suppl (TeeBeeDee Verio Flex System) w/Device kit TEST BLOOD SUGAR EVERY DAY1 kit 0 Blood Pressure Monitoring (Blood Pressure Cuff) [facility] Use daily as prescribed 1 each 0 clotrimazole-betamethasone (Lotrisone) cream APPLY 1 GRAM TOPICALLY TO AFFECTED AREA(S) TWICE DAILYAS DIRECTED 30 g 1 cyclobenzaprine (Flexeril) 10 MG tablet TAKE 1 TABLET BY MOUTH EVERY EVENING AT BEDTIME diclofenac (Voltaren) 50 MG EC tablet TAKE 1 TABLET BY MOUTH TWICE DAILY, DO NOT BREAK, CRUSH, DISSOLVE OR CHEW 100 tablet 2 glucose blood (Microdermisuch Verio) test strip USE DIRECTED TO TEST BLOOD SUGAR ONCE DAILY 50 strip 11 hydroCHLOROthiazide 12.5 MG tablet TAKE 1 TABLET BY MOUTH EVERY MORNING, 30 tablet 11 Lancets (TeeBeeDee Delica Plus [id number]) [facility] TEST BLOOD SUGAR EVERY DAY 100 each 11 losartan (Cozaar) 50 MG tablet TAKE 2 TABLETS BY MOUTH EVERY DAY IN THE MORNING 60 tablet 11 metFORMIN (Glucophage) 500 MG tablet TAKE 1 TABLET BY MOUTH TWICE DAILY IN THE MORNING AND IN THE EVENING WITH MEALS 60 tablet 11 mirtazapine (Remeron) 15 MG tablet TAKE 1/2 TABLET BY MOUTH TWICE DAILY (AT 4 IN THE EVENING AND ATBEDTIME) 30 tablet 3 spironolactone (Aldactone) 50 MG tablet Take 1 tablet (50 mg) by mouth Once per day. 30 tablet 5 [DISCONTINUED] minoxidil (Rogaine) 2 % external solution Apply topically 2 times daily. 60 mL 5 [DISCONTINUED] pantoprazole (ProtoNix) 40 MG EC tablet TAKE 1 TABLET BY MOUTH EVERY DAY 90 tablet 3 No current facility-administered medications on file prior to visit. documented in this encounter Miscellaneous Notes * Assessment & Plan Note - Abby Emery MD - 07/24/2024 3:03 PM EDT Associated Problem(s): Lumbosacral radiculopathy due to degenerative joint disease of spine Doing well on Tylenol or diclofenac as needed. Advised not to take diclofenac daily due to GI and renal side effects. Will check BMP Recommended stretching exercises, contact a puncture or chronic pain clinic. She declined physical therapy Recommended to be as active as she can and wear appropriate shoes * Assessment & Plan Note - Abby Emery MD - 07/24/2024 3:02 PM EDT Associated Problem(s): HTN (hypertension), benign Controlled, BP is at goal Continue lisinopril/hctz + Atenolol same dose Counseled re low salt diet/increase moderate physical activity. Check home BP BIW and prn CP/PITTMAN/AMBROSE Non smoking patient. Fu w me in 6 month with labs * Assessment & Plan Note - Abby Emery MD - 07/24/2024 3:02 PM EDT Associated Problem(s): Hyperlipidemia associated with type 2 diabetes mellitus (CMS/HCC) She has been out of Lipitor for more than 6 months, will repeat lipid profile and restart if needed. We discussed re rx options. Recommended moderate amount of exercise and increase consumption of fruit, vegetables, fish and high fiber foods. Should decrease consumption of highly saturated fats or trans fats. Follow-up in 6 months or I will call her earlier as needed for abnormal labs * Assessment & Plan Note - Abby Emery MD - 07/24/2024 3:00 PM EDT Associated Problem(s): Obesity Discussed re weight reduction options including exercise, life style modifications, diet. Recommended to decrease soda and sugary beverage consumption, increase protein intake with meals (at least 1 portion of protein with each meal) to assist with satiety, increase dietary fiber Recommended at least 150 min/week of moderate intensity exercise. Declined/wants a referral to dietitian * Assessment & Plan Note - Abby Emery MD - 07/24/2024 2:59 PM EDT Associated Problem(s): Type 2 diabetes mellitus without complication, without long-term current useof insulin (CMS/HCC) Controlled. A1c is at goal. Continue on Metformin bid Counseled re more frequent low calorie/carb meals. Check fgstk 1x daily Encouraged physical activity as tolerated. FU in 4-6 months. Advised to schedule an appointment with eye clinic Foot examination is normal, no diabetic neuropathy Dental examination up-to-date, recommended to have dental prophylaxis every 6 months She declined COVID, influenza, PCV or Tdap today. Advised to have them at her earliest convenience and add zoster immunization as well. documented in this encounter Plan of Treatment Scheduled Orders Name Type Priority Associated Diagnoses Orde r Schedule Cologuard?? colon cancer screening Lab Routine Screening for colon cancer Ordered: 07/24/2024 Albumin, Random Urine W/Creatinine Lab Routine Type 2 diabetes mellitus without complication, without long-term current use of insulin (CMS/HCC) Expected: 07/24/2024 (Approximate), Expires: 07/24/2025 Comprehensive Metabolic Panel Lab Routine Type 2 diabetes mellitus without complication, without long-term current use of insulin (CMS/HCC) Expected: 07/24/2024 (Approximate), Expires: 07/24/2025 Lipid Panel with Reflex to Direct LDL Lab Routine Hyperlipidemia associated with type 2 diabetes mellitus (CMS/HCC) Expected: 07/24/2024 (Approximate), Expires: 07/24/2025 Vitamin D, 25-Hydroxy, Total, Immunoassay Lab Routine Type 2 diabetes mellitus without complication, without long-term current use of insulin (CMS/HCC) Expected: 07/24/2024 (Approximate), Expires: 07/24/2025 TSH with Reflex to Free T4 Lab Routine Type 2 diabetes mellitus without complication, without long-term current use of insulin ([facility]) Expected: 07/24/2024 (Approximate), Expires: 07/24/2025 documented as of this encounter Procedures Procedure Name Priority Date/Time Associated Diagnosis Comments POCT GLYCATED HEMOGLOBIN, TOTAL Routine 07/24/2024 8:58 AM EDT Type 2 diabetes mellitus without complication, without long-term current use of insulin ([facility]) POCT GLUCOSE Routine 07/24/2024 8:56 AM EDT Type 2 diabetes mellitus without complication, without long-term current use of insulin ([facility]) documented in this encounter Results * (ABNORMAL) POCT HGB A1C (07/24/2024 8:58 AM EDT) Hemoglobin A1C 6.8(A) 4.0 - 6.0 % QC Media Lot # [id number] Lot# Expiration Date 120,526 Blood 07/24/2024 8:58 AM EDT Abby Emery MD POINT OF CARE TEST ENTER /EDIT ORDERABLES Final Result * POCT Glucose (07/24/2024 8:56 AM EDT) Glucose Blood, POC 171 60 - 200 mg/dL QC Media Lot # [id number] Lot# Expiration Date 101,425 Blood Capillary blood specimen / Unknown 07/24/2024 8:56 AM EDT Abby Emery MD POINT OF CARE TEST ENTER /EDIT ORDERABLES Final Result documented in this encounter Visit Diagnoses Diagnosis Type 2 diabetes mellitus without complication, without long-term current use of insulin ([facility])- Primary HTN (hypertension), benign Essential hypertension, benign Lumbosacral radiculopathy due to degenerative joint disease of spine Hyperlipidemia associated with type 2 diabetes mellitus ([facility]) Class 1 obesity due to excess calories with serious comorbidity and body mass index (BMI) of 30.0 to 30.9 in adult Screening for colon cancer Special screening for malignant neoplasms, colon Dietary counseling Dietary surveillance and counseling Exercise counseling documented in this encounter Additional Health Concerns Assessment Noted Time PHQ-9 Depression Total Score: 6 10/04/19 24 11:45 AM EDT documented as of this encounter Care Teams Diet Supervisor Relationship Specialty Start Date End Date Abby Emery MD [address] [place] [id number] PCP - General Family Medicine 06/06/18 documented as of this encounter
--- OUTSIDE RECORDS SUMMARY | 2024-07-28 08:46 | XMS_ITS | Encounter Summary ---
Author Organization [employer] Address [address] [facility] [address] [place] [address] Care Team Providers Care Speed Winder Name Role Phone Abby Emery MD Primary Care Provider + Reason for Visit * Reason Comments Med Refill Encounter Details Date Type Department Care Team ([facility] Contact Info) Description 02/27/2024 Refill [facility] MEDICINE [address] [place], [place] [phone] Abby Emery MD [address] [place] [address] Social History Tobacco Use Types Packs/Day Years [...] Recorded Patient Health Questionnaire-2 Score 2 10/04/2023 Comments Unknown Sex and Gender Information Value [...] documented as of this encounter Care Teams Speed Winder Relationship Specialty Start Date End Date Abby Emery MD [address] [place] [id number] PCP - General Family Medicine 06/06/18 documented as of this encounter
--- OUTSIDE RECORDS SUMMARY | 2024-07-28 08:46 | XMS_ITS | Clinical Summary ---
Author Organization [employer] Address [address] [place] [address] [address] [place] [address] Care Team Providers Care Field Installer Name Role Phone Lj Wolf MD Primary Care Provider + Allergies Active Allergy Reactions Criticality Noted Date Comments Emeka Inhibitors 03/12/2022 Sulfamethoxazole-Trimethoprim 2021 Sulfa Antibiotics 07/30/2017 Sulfate Itching 03/12/2022 Medications atorvastatin (Lipitor) 40 MG tabletIndicatio ns:Hyperlipidem ia associated with type 2 diabetes mellitus (CMS/HCC) Take 1 tablet (40 mg) by mouth in the morning. 30 tablet 11 03/12/20 22 Active acetaminophen (Tylenol) 500 MG tablet take 1- 2 tablet by oral route every 8-12 hours as needed not to exceed 8 tablets per 24hrs 12/13/19 22 Active cyclobenzaprine (Flexeril) 10 MG tablet TAKE 1 TABLET BY MOUTH EVERY EVENING AT BEDTIME 12/13/19 22 Active glucose blood (OneTouch Verio) test stripIndication s:Type 2 diabetes mellitus without complication, without long-term current use of insulin (CMS/HCC) USE DIRECTED TO TEST BLOOD SUGAR ONCE DAILY 50 strip 11 10/01/19 24 Active Blood Pressure Monitoring (Blood Pressure Cuff) misc Use daily as prescribed 1 each 10/04/19 24 Active Blood Glucose Monitoring Suppl (OneTouch Verio Flex System) w/Device kit TEST BLOOD SUGAR EVERY DAY 1 kit 10/04/19 24 Active diclofenac (Voltaren) 50 MG EC tabletIndicatio ns:Sprain of left rotator cuff capsule, subsequent encounter,Acute exacerbation of chronic low back pain TAKE 1 TABLET BY MOUTH TWICE DAILY, DO NOT BREAK, CRUSH, DISSOLVE OR CHEW 100 tablet 2 02/27/20 24 Active spironolactone (Aldactone) 50 MG tablet Take 1 tablet (50 mg) by mouth Once per day. 30 tablet 5 02/27/20 24 025 Active atenolol (Tenormin) 100 MG tabletIndicatio ns:HTN (hypertension), benign TAKE 1 TABLET BY MOUTH ONCE DAILY IN THE MORNING 30 tablet 11 03/23/20 24 Active metFORMIN (Glucophage) 500 MG tabletIndicatio ns:Type 2 diabetes mellitus without complication, without long-term current use of insulin (CMS/HCC) TAKE 1 TABLET BY MOUTH TWICE DAILY IN THE MORNING AND IN THE EVENING WITH MEALS 60 tablet 11 03/23/20 24 Active losartan (Cozaar) 50 MG tabletIndicatio ns:HTN (hypertension), benign TAKE 2 TABLETS BY MOUTH EVERY DAY IN THE MORNING 60 tablet 11 03/23/20 24 Active hydroCHLOROthia zide 12.5 MG tabletIndicatio ns:HTN (hypertension), benign TAKE 1 TABLET BY MOUTH EVERY MORNING, 30 tablet 11 03/23/20 24 Active mirtazapine (Remeron) 15 MG tabletIndicatio ns:Adjustment disorder with depressed mood TAKE 1/2 TABLET BY MOUTH TWICE DAILY (AT 4 IN THE EVENING AND AT BEDTIME) 30 tablet 3 07/04/19 25 Active Lancets (OneTouch Delica Plus [id number]) [facility] TEST BLOOD SUGAR EVERY DAY 100 each 07/10/19 25 Active clotrimazole-be tamethasone (Lotrisone) creamIndication s:Tinea corporis APPLY 1 GRAM TOPICALLY TO AFFECTED AREA(S) TWICE DAILY DIRECTED 30 g 1 07/17/19 25 Active pantoprazole (ProtoNix) 40 MG EC tablet Take 1 tablet (40 mg) by mouth Once per day. Do not crush, chew, or split. 90 tablet 3 07/25/19 25 Active minoxidil (Rogaine) 2 % external solution Apply topically 2 times daily. 60 mL 5 06/19/19 24 025 Discontinued(I neffective) pantoprazole (ProtoNix) 40 MG EC tablet TAKE 1 TABLET BY MOUTH EVERY DAY 90 tablet 3 07/09/19 24 025 Discontinued(R eorder (will not trigger notification to Pharmacy)) Lancets (OneTouch Delica Plus [id number]) misc Inject 100 each under the skin 3 times daily. USE 1 TO TEST BLOOD SUGAR EVERY DAY 100 each 11 10/04/19 24 025 Discontinued mirtazapine (Remeron) 15 MG tabletIndicatio ns:Adjustment disorder with depressed mood TAKE 1/2 TABLET BY MOUTH TWICE DAILY (AT 4 PM AND AT BEDTIME) 30 tablet 3 02/21/20 24 025 Discontinued clotrimazole-be tamethasone (Lotrisone) creamIndication s:Tinea corporis APPLY 1 GRAM TOPICALLY TO AFFECTED AREA(S) TWICE DAILY DIRECTED 30 g 1 05/18/19 025 Discontinued Active Problems Problem Noted Date Diagnosed Date Left leg pain 10/04/2023 Assessment & Plan (10/04/2023 3:33 PM EDT): Has lumbar spine disease, likely exacerbated after recent fall at home. Doing better now, continue tylenol prn + stretching exercises. Gastrointestinal hemorrhage 10/04/2023 Assessment & Plan (10/04/2023 3:33 PM EDT): Lower GIB I gave her order for stool labs to get done today. I gave her GI info to call and rs colonoscopy Generalized abdominal pain 05/29/2023 Assessment & Plan (05/29/2023 2:36 PM EST): I advise patient to avoid NSAIDs, spicy and acid food, I advise to eat at the same time every day, I advise to elevate the head of the bed and take medications as prescribe C/w pantoprazole 40mg AM Occult blood in stool H pylori test Referral to GI Blood in stool 05/29/2023 Tinea corporis 11/05/2022 Assessment & Plan (11/05/2022 1:05 PM EDT): use lotrisone BID for 1-2 weeks Lumbosacral radiculopathy du e to degenerative joint disease of spine 11/05/2022 Assessment & Plan (07/24/2024 3:03 PM EDT): Doing well on Tylenol or diclofenac as needed. Advised not to take diclofenac daily due to GI and renal side effects. Will check BMP Recommended stretching exercises, contact a puncture or chronic pain clinic. She declined physical therapy Recommended to be as active as she can and wear appropriate shoes Spinal stenosis at L4-L5 level 11/05/2022 Assessment & Plan (03/08/2023 11:26 AM EST): Did not FU w/ pain clinic or PT. She's done PT several times Reminded her to do stretching and strengthening exercises daily Use tylenol PRN Reconsult PRN severe pain or gait disturbance Reminded to use cane or walker Assessment & Plan (11/05/2022 1:04 PM EDT): MRI on 07/20/22 showed, pt had been referred to pain clinic (apparently she has not been called for an appointment) ounseled to go to ED if she develops sever numbness, worsening of ambulation Continue tylenol + cyclobenzaprine PRN I will send a prescription for a walker to prevent falls Visit for preventive health examination 08/14/19 Assessment & Plan (08/13/2022 10:22 AM EDT): Discussed with patient re increase fresh fruit and vegetable intake. Counseled re moderate exercise as tolerated, up to 20min/d Patient feels safe at home. PAP smears/p hystercetomy no longer needed Mammogram up to date 2022, will obtain results Bone density test TBO Eye exam up to date CRC screen more than 5 years ago, needs referral to GI due to history of polyp Lipids/FBS up to date, next one due in 6 months Vaccinations overdue for Covid booster, declined, otherwise Overdue for all other IZ, she declined any IZ at this time. Dental visit up to date Acute exacerbation of chronic low back pain 06/06 Assessment & Plan (06/21/2022 1:32 PM EDT): Most likely has DDD of lumbar spine, r/o radiculopathy Use diclofenac 50mg TID and order MRI of the lumbar spine Left hip pain 06/21/2022 Assessment & Plan (06/21/2022 1:31 PM EDT): R/o sacroiliitis vs radiculopathy DDD (degenerative disc disease), cervical 2022 Assessment & Plan (08/13/2022 10:25 AM EDT): results of MRI have been discused with pt she has been referred to PT continue tylenol or diclofenac and heat compresses PRN continue to accupuncture clinic Adjustment disorder with depressed mood 06/19/19 Assessment & Plan (05/09/2023 9:11 AM EST): Resolved. Seems to be coping better w daughters chronic condition Assessment & Plan (03/08/2023 11:25 AM EST): We discussed coping mechanisms and ways to support daughter with chronic condition, she will travel to visit her this season Use Mirtazapine 7.5-15mg qAM+qHS Discussed w/ pt regarding sleep hygiene FU w/ me prn Chronic pain of both shoulders 06/18/2022 Foot callus 06/18/2022 Hallux valgus 06/18/2022 H/O: hysterectomy 06/18/2022 Loss of hair 06/18/2022 Assessment & Plan (05/09/2023 9:11 AM EST): Will refer to dermatology Subacute vaginitis 06/18/2022 Vasovagal syncope 06/18/2022 Sleep disorder 06/18/2022 Assessment & Plan (10/04/2023 3:30 PM EDT): Doing well on mirtazapine, takes it prn,usually waits until midnight to take it. Advised to start taking it every night around 8-9pm x 1m and then prn. Assessment & Plan (05/09/2023 9:11 AM EST): Apparently related to anxiety, doing better Cont mirtazapine 7.5mg in the evening and 7.5mg qHS COVID-19 03/12/2022 Assessment & Plan (03/12/2022 9:45 AM EST): Self-care measures: Rest (sleep at least 8 hours a night). Hydrate with plenty of water (avoid caffeine and alcohol). Use saline nose drops to loosen mucus Take Acetaminophen (Tylenol??)or Ibuprofen as needed to reduce fever or discomfort Gargle with salt water and use throat sprays/lozenges for throat pain. Use heated, humidified air. If you do not have a humidifier, take hot showers. Limit spread to others: Wash hands frequently. Cover coughs and sneezes using the crook of your elbow. If you have a fever, stay home and away from others (self isolation) until fever-free for 72 hours (temperature should be less than 100??F without medication). Type 2 diabetes mellitus wit hout complication, without long-term current use of insulin 03/12/2022 Assessment & Plan (07/24/2024 3:05 PM EDT): Controlled. A1c is at goal. Continue on [...] convenience and add zoster immunization as well. Assessment & Plan (10/04/2023 3:32 PM EDT): Controlled. A1c is at goal. Continue on Metformin bid Counseled re more frequent low calorie/carb meals. Check fgstk 1x daily Encouraged physical activity as tolerated. FU in 3 months. Assessment & Plan (03/08/2023 11:23 AM EST): Most likely controlled Stressed importance of using metformin daily w/ meals Counseled re more frequent low calorie/carb meals. Encouraged physical activity as tolerated. FU w/ me in 2 months w/ labs Assessment & Plan (11/05/2022 1:06 PM EDT): Controlled. Continue metformin 500mg BID Counseled re more frequent low calorie/carb meals. Encouraged physical activity as tolerated. Assessment & Plan (08/13/2022 10:36 AM EDT): Not at goal yet, fairly controlled. discussed with pt with taking metfomin daily as opposed to PRN Counseled re more frequent low calorie/carb meals. Encouraged physical activity as tolerated. FU A1C in 3 months Encouraged lifestyle modifications Will continue Metformin. Assessment & Plan (06/21/2022 1:30 PM EDT): Controlled. Last A1C in March was at goal. Continue Metformin Counseled re more frequent low calorie/carb meals. Encouraged physical activity as tolerated. Assessment & Plan (03/12/2022 9:42 AM EST): Controlled. A1c is at goal. Continue on metfromin 500mg bid Counseled re more frequent low calorie/carb meals. Check fgstk 1x daily Encouraged physical activity as tolerated. FU in 3 months w labs Eye appt due on 06/2022. Sprain of left rotator cuff capsule 03/12/2022 Assessment & Plan (11/05/2022 1:05 PM EDT): referral to pain management handed to patient to schedule an appointment continue tylenol PRN, she will also reschedule PT Assessment & Plan (06/21/2022 1:30 PM EDT): Seen by orthopedics already Refer to PT and pain management to r/o pain coming from c-spine disease Use Tylenol PRN Assessment & Plan (03/12/2022 9:40 AM EST): Seen by ortho I suspect that she may have spinal arthritis either cervical or dorsal spine, I will send MRI or dorsal spine. Continue acupuncture and gentle exercises at home Use Ibuprofen alternated with Tylenol prn pain FU in 3m w me and with ortho when scheduled. Left shoulder pain 03/12/2022 Trapezius strain, left, sequela 03/12/2022 Disorder of nail 06/25/2018 Gait disturbance 07/30/2017 Assessment & Plan (06/21/2022 1:31 PM EDT): r/o radiculopathy, unclear degree of functional limitation. order MRI and possibly nerve conduction study if applicable counseled to walk with a cane we discussed about risk of driving due to reportedly severe leg weakness, handicap placard will be signed. Pt is aware that she may/not require competency driving test due to safety issues. Gastroesophageal reflux disease without esophagi tis 07/30/2017 Knee pain 07/30/2017 Primary osteoarthritis of left knee 07/30/2017 Obesity 07/30/2017 Assessment & Plan (07/24/2024 3:00 PM EDT): Discussed re weight reduction options including exercise, life style modifications, diet. Recommended to decrease soda and sugary beverage consumption, increase protein intake with meals (at least 1 portion of protein with each meal) to assist with satiety, increase dietary fiber Recommended at least 150 min/week of moderate intensity exercise. Declined/wants a referral to dietitian History of hysterectomy for benign disease 07/30 HTN (hypertension), benign 07/30/2017 Assessment & Plan (07/24/2024 3:02 PM EDT): >>ASSESSMENT AND PLAN FOR BENIGN ESSENTIAL HYPERTENSION WRITTEN ON 06/21/2022 1:33 PM BY RIP MERIDA BP is at goal. Continue Losartan, HCTZ, and Atenolol. Counseled re low salt diet/increase moderate physical activity. Check home BP BIW and prn CP/PITTMAN/AMBROSE Non smoking patient. Assessment & Plan (07/24/2024 3:02 PM EDT): >>ASSESSMENT AND PLAN FOR BENIGN ESSENTIAL HYPERTENSION WRITTEN ON 08/13/2022 10:59 AM BY RIP Fajardory ania, discussed with pt the importance of taking medications daily check BP 2 times per week Counseled re low salt diet/increase moderate physical activity. Check home BP BIW and prn CP/PITTMAN/AMBROSE Non smoking patient. Assessment & Plan (07/24/2024 3:02 PM EDT): >>ASSESSMENT AND PLAN FOR BENIGN ESSENTIAL HYPERTENSION WRITTEN ON 10/04/2023 3:31 PM BY LJ WOLF MD Controlled. Compliant w/meds Continue losartan + hctz +chlorthalidone + atenolol same dose Counseled re low salt diet/increase moderate physical activity. Check home BP BIW and prn CP/PITTMAN/AMBROSE Non smoking patient. Fu in 6m Assessment & Plan (07/24/2024 3:02 PM EDT): Controlled, BP is at goal Continue lisinopril/hctz + Atenolol same dose Counseled re low salt diet/increase moderate physical activity. Check home BP BIW and prn CP/PITTMAN/AMBROSE Non smoking patient. Fu w me in 6 month with labs Assessment & Plan (03/08/2023 11:28 AM EST): Controlled, repeated is 140/80 Continue lisinopril/hctz + Atenolol same dose Counseled re low salt diet/increase moderate physical activity. Check home BP BIW and prn CP/PITTMAN/AMBROSE Non smoking patient. Fu w me in 6 month Hyperlipidemia associated with type 2 diabetes dustin henson Assessment & Plan (07/24/2024 3:02 PM EDT): She has been out of Lipitor for [...] her earlier as needed for abnormal labs Assessment & Plan (05/09/2023 9:11 AM EST): LDL is at goal Will cont Lipitor 40mg and Recommended moderate amount of exercise and increased consumption of fruit, vegetables, fish and high fiber foods. We discussed about avoiding consumption of highly saturated fats or trans fats. Fu lipids in 1 yr Assessment & Plan (03/08/2023 11:29 AM EST): Reportedly taking atorvastatin daily Check lipid profile FU in 2 month with me Assessment & Plan (08/13/2022 10:59 AM EDT): LDL is not at goal, pt is not compliant with atorvastatin, we discussed importance of taking medication every night and will fu lipids in 3 months. Continue atorvastatin 40 mg. Resolved Problems Problem Noted Date Diagnosed Date Resolved Date HTN (hypertension), benign 03/12/2022 0 06/21/2022 Assessment & Plan (03/12/2022 9:39 AM EST): Controlled. Compliant w/meds Continue atenolol, losartan and hctz same dose Counseled re low salt diet/increase moderate physical activity. Check home BP BIW and prn CP/PITTMAN/AMBROSE. Check BMP prior to next RV Non smoking patient. Hypertensive disorder 07/30/20172022 Type 2 diabetes mellitus 07/30/2017 Encounters Date Type Department Care Team Description 07/24/2024 9:00 AM EDT Office Visit [address] [address] Lj Wolf MD Type 2 diabetes mellitus without complication, without [...] for colon cancer; Dietary counseling; Exercise counseling 07/24/2024 Travel 07/21/[address] [phone] Lj Wolf MD Chart prep 07/16/[address] [address] Lj Wolf MD Tinea corporis 07/15/2024 Patient Outreach [address] [address] Lj Wolf MD Pre-visit Planning (SDOH screening negative and tobacco screening negative) 07/08/2024 Refill [facility] [address] [place], [place] [phone] Lj Wolf MD 07/03/2024 Refill [facility] [address] [place] [address] Lj Wolf MD Adjustment disorder with depressed mood 06/16/2024 10:00 AM EDT Office Visit [facility] [address], [place] [phone] Mayur Hoffman MD Tooth absence (Primary Dx); HTN (hypertension), benign 05/16/2024 Refill [facility] [address], [place] [phone] Lj Wolf MD Tinea corporis from Last 3 Months Immunizations Name Administration Dates Next Due Pfizer Covid-19 Vaccine 12+ 07/07/2020, Pneumococcal Polysaccharide PPSV23 11/18/2017 Social History Tobacco Use Types Packs/Day Years [...] Orientation Straight 02/05/2022 10 :33 AM EDT Last Filed Vital Signs Vital Sign Reading Time Taken Comments Blood Pressure 130/59 07/24/2024 8:54 AM EDT Pulse 70 07/24/2024 8:54 AM EDT Temperature 36.4 ??C (97.6 ??F) 07/24/2024 8:54 AM ED T Respiratory Rate 18 06/16/2024 9:55 AM EDT Oxygen Saturation 96% 07/24/2024 8:54 AM EDT Inhaled Oxygen Concentration - - Weight 81.6 kg (180 lb) 07/24/2024 8:54 AM EDT Height 162.6 cm (5' 4 ) 07/24/2024 8:54 AM EDT Body Mass Index 30.9 07/24/2024 8:54 AM EDT Plan of Treatment Health Maintenance Due Date Last Done Comments CT Colonography 1955 Colonoscopy 1955 Colorectal Cancer Screening 1955 FIT DNA/Cologuard 1955 FIT 1955 FOBT 1955 Sigmoidoscopy 1955 Alcohol/Substance Use Screening 1967 Hepatitis C Screening 1973 DTaP/Tdap/Td Vaccines (1 - Tdap) 1974 Zoster Vaccines (1 of 2) 2005 Pneumococcal Vaccine: 50+ Years (2 of 2 - PCV) 11/18/2018 11/18/2017 Diabetes: Urine Protein Screening 08/03/2023 08/02/2022, 06/06/2021 Diabetes: Foot Exam 08/14/2023 08/13/2022, 08/13/2022, 08/13/2022, Additional history exists COVID-19 Vaccine ( season) 2023 07/07/2020, 06/09/2020 Influenza Vaccine (#1) 2023 Lipid Panel 03/12/2024 03/12/2023, 07/08, 06/06/2021 Eye Exam 08/02/2024 08/02/2022, 07/08, 08/02/2022, Additional history exists Depression Screening 10/03/2024 10/04/2023, 10/04/19 24 Mammogram 10/06/2024 10/07/2023, 07/08, 07/31/2022, Additional history exists Diabetes: Hemoglobin A1C 01/23/2025 025, 10/04/2023, 11/05/2022, Additional history exists SDOH Screening 07/15/2025 07/15/2024 Tobacco Screening 07/24/2025 07/24/2024 RSV Patients and Patients Aged 60 years or older (1 - 1-dose 75+ series) 2030 HIB [...] patient's age to complete this topic Meningococcal Vaccine Aged Out No libia dagoberto eligible based on patient's age to complete this topic RSV under 20 months Aged Out No longe r eligible based on patient's age to complete this topic Rotavirus Vaccines Aged Out No longer eligible based on patient's age to complete this topic Procedures Procedure Name Priority Date/Time Associated Diagnosis Comments POCT GLYCATED HEMOGLOBIN, TOTAL Routine 07/24/2024 8:58 AM EDT Type 2 diabetes mellitus without complication, without long-term current use of insulin ([facility]) POCT GLUCOSE Routine 07/24/2024 8:56 AM EDT Type 2 diabetes mellitus without complication, without long-term current use of insulin ([facility]) BI MAMMOGRAM SCREENING TOMOSYNTHESIS BILATERAL Routine 10/07/2023 12:43 PM EDT LIPID PANEL WITH REFLEX TO DIRECT LDL Routine 03/12/2023 8:02 AM EST Pure hypercholesterolemia ALBUMIN, RANDOM URINE W/O CREATININE Routine 08/02/2022 8:25 AM EDT Type 2 diabetes mellitus without complication, without long-term current use of insulin ([facility]) from Last 3 Months or Most Recently Relevant to Health Maintenance Results * (ABNORMAL) POCT HGB A1C (07/24/2024 8:58 AM EDT) Hemoglobin A1C 6.8(A) 4.0 - 6.0 % QC Media Lot # [id number] Lot# Expiration Date 120,526 Blood 07/24/2024 8:58 AM EDT Lj Wolf MD POINT OF CARE TEST ENTER /EDIT ORDERABLES Final Result * POCT Glucose (07/24/2024 8:56 AM EDT) Glucose Blood, POC 171 60 - 200 mg/dL QC Media Lot # [id number] Lot# Expiration Date 101,425 Blood Capillary blood specimen / Unknown 07/24/2024 8:56 AM EDT Lj Wolf MD POINT OF CARE TEST ENTER /EDIT ORDERABLES Final Result * BI Mammogram Screening Tomosynthesis Bilateral (10/07/2023 12:43 PM EDT) Anatomical Region Laterality Modality Breast Bilateral Mammography 10/07/2023 12:4 3 PM EDT Narrative 11/06/2023 6:06 AM EDT ? [facility] ? [address] ?[place] [address] ? Mammography Report ? Signed ? Patient: John Rasheed,Jessica ?MR#: ?? [id number] ? : 1955 ?Acct:[id number] ? Age/Sex: 68 / F ?ADM Date: 10/07/23 ? Loc: HO.MAMMO ? Attending Dr: Lj Wolf MD ? Ordering Physician: Lj Wolf MD ?Results: 1Ne ?? gative ? Date of Service: 10/07/23 ?Follow Up: 1 Year From Orig ?? inal Mammogram ? Procedure(s): MM tomosynthesis screening BI ?? Accession Number(s): [id number] ? cc: Lj Wolf MD ? EXAMINATION: ?? MM SCREENING DIGITAL BREAST TOMOSYNTHESIS, BILATERAL ? CLINICAL INFORMATION: ? Screening. Asymptomatic. ? COMPARISON: ?? Mammography: This study is compared with prior exams dating back to ?? 2019. ? TECHNIQUE: ?? Digital breast tomosynthesis is performed in both the craniocaudal and ?? mediolateral oblique views along with computer-aided detection (CAD). ?? Synthesized 2D images are generated from the tomosynthesis. ? FINDINGS: ?? There are scattered areas of fibroglandular density (ACR BI-RADS breast ?? composition Category b). ? There are no significant masses, abnormal calcifications, or other ?? abnormalities. ? MM/MM tomosynthesis screening BI ?? IMPRESSION: ?? No mammographic evidence of malignancy. ? ASSESSMENT: ? BI-RADS BI-RADS 1 - Negative ? RECOMMENDATION: ?? Routine annual mammography screening. ? 1 year F/U ? This examination should not preclude the clinical evaluation of a ?? suspicious palpable abnormality. ? This patient's information was entered into a reminder system with a ?? target due date for their next mammogram. ? Dictated By: ?Saranya Mitchell MD ? Signed By: ?<Electronically signed by Saranya Mitchell MD in OV> ? 11/06/23601 ? DD/ 1243 ? TD/TT: ? Edger Feeder: ? Procedure Note Donotjoaninterpreter, Image - 11/06/2023 Chaitanya [facility] [address] [place], [place] [address] Mammography Report Signed Patient: Jessica Ochoa#: [id number] : 5Acct:[id number] Age/Sex: 68 / FADM Date: 10/07/23 Loc: HO.MAMMO Attending Dr: Lj Wolf MD Ordering Physician: Lj Wolf MDResults: 1Ne gative Date of Service: 10/07/23Follow Up: 1 Year From Orig inal Mammogram Procedure(s): MM tomosynthesis screening BI Accession Number(s): [id number] cc: Lj Wolf MD EXAMINATION: MM SCREENING DIGITAL BREAST TOMOSYNTHESIS, BILATERAL CLINICAL INFORMATION: Screening. Asymptomatic. COMPARISON: Mammography: This study is compared with prior exams dating back to 2019. TECHNIQUE: Digital breast tomosynthesis is performed in both the craniocaudal and mediolateral oblique views along with computer-aided detection (CAD). Synthesized 2D images are generated from the tomosynthesis. FINDINGS: There are scattered areas of fibroglandular density (ACR BI-RADS breast composition Category b). There are no significant masses, abnormal calcifications, or other abnormalities. MM/MM tomosynthesis screening BI IMPRESSION: No mammographic evidence of malignancy. ASSESSMENT: BI-RADS BI-RADS 1 - Negative RECOMMENDATION: Routine annual mammography screening. 1 year F/U This examination should not preclude the clinical evaluation of a suspicious palpable abnormality. This patient's information was entered into a reminder system with a target due date for their next mammogram. Dictated By: Saranya Mitchell MD Signed By: <Electronically signed by Saranya Mitchell MD in [place]> 11/06/23 0602 DD/ 1243 TD/TT: Edger Feeder: us Lj Wolf MD IMG BI PROCEDURES Final Result * (ABNORMAL) Lipid Panel with Reflex to Direct LDL (03/12/2023 8:02 AM EST) Triglycerides 70 <150 mg/dL [facility] Comment:Desirable Triglyceri de: less than 150 mg/dLBorderline High Triglyceride 150-199 mg/dLHigh Triglyceride: 200-499 mg/dLVery High Triglyceride: greater than or equal to 5OO mg/dL Cholesterol 169 <200 mg/dL [facility] Comment:Desirable Cholestero l: less than 200 mg/dLBorderline High Cholesterol: 200-239 mg/dLHigh Cholesterol: greater than 239 mg/dL LDL Cholesterol Calculated 104(H) <100 mg/dL [facility] Comment:Desirable LDL: less than 100 mg/dLNear Optimal/Above Optimal LDL: 110- 129 mg/dLBorderline High LDL: 130-159 mg/dLHigh LDL: 160-189 mg/dLVery High LDL: greater than or equal to 190 mg/dL HDL Cholesterol 51 >40 mg/dL [facility] Comment:Desirable HDL: great er than 40 mg/dL Note: This HDL assay may give artificially low results in patients with liver disease. Blood 03/12/2023 8:02 AM EST 03/12/2023 10:53 AM EST Lj Wolf MD LAB BLOOD ORDERABLES Fin al Result [facility] [address] [place] [phone] * Albumin, Random Urine W/O Creatinine (08/02/2022 8:25 AM EDT) Albumin, Urine 1.1 See Note: mg/dL [facility] Comment: Reference Range: Reference Range Not established [facility] Comment: The ADA defines abnormalities in albumin excretion as follows: Albuminuria Category ? Result (mcg/mg creatinine) Normal to Mildly increased ?<30 Moderately increased ?30-299 Severely increased ?> OR = 300 The ADA recommends that at least two of three specimens collected within a 3-6 month period be abnormal before considering a patient to be within a diagnostic category. Urine Urine specimen obtained by clean catch procedure / Unknown 08/02/2022 8:25 AM EDT 08/02/2022 8:25 AM EDT [facility] - 08/04/2022 2:49 PM EDT FASTING:YES FASTING: YES Lj Wolf MD LAB URINE ORDERABLES Fin al Result [facility] [address], [place] [address] [facility] [address] [place] [address] from Last 3 Months or Most Recently Relevant to Health Maintenance Insurance [facility] [employer] (HMO D-SNP) [place] [id number] Care Teams Field Installer Relationship Specialty Start Date End Date Lj Wolf MD [address] [place] [phone] PCP - General Family Medicine 06/06/18
--- OUTSIDE RECORDS SUMMARY | 2024-07-28 08:46 | XMS_ITS | Encounter Summary ---
Author Organization [employer] Address [address] [place] [address] [address]t [place] [address] Care Team Providers Care Merchandise Processor Name Role Phone Abby Emery MD Primary Care Provider + Encounter Details Date Type Department Care Team ([facility] st Contact Info) Description 10/05/2022 Abstract [facility] MEDICINE [address] [place], [place] [phone] Rima Corbin RN [address] [place] [address] Social History Tobacco Use Types Packs/Day Years Used Date Smoking Tobacco: Former Cigarettes Smokeless Tobacco: Never Alcohol Use Standard Drinks/Week Comments Never 0 (1 standard drink = 0.6 oz pur e alcohol) Depression Answer Date Recorded Patient Health Questionnaire-9 Score 21 06/21/2022 Depression Answer Date Recorded Patient Health Questionnaire-2 [...] documented as of this encounter Care Teams Merchandise Processor Relationship Specialty Start Date End Date Abby Emery MD [address] [place], [place] [phone] PCP - General Family Medicine 06/06/18 documented as of this encounter
--- OUTSIDE RECORDS SUMMARY | 2024-07-28 08:46 | XMS_ITS | Encounter Summary ---
Author Organization [employer] Address [address] [facility] [address]t [place] [address] Care Team Providers Care Peripheral Edp Equipment Operator Name Role Phone Abby Emery MD Primary Care Provider + Encounter Details Date Type Department Care Team (Late st Contact Info) Description 07/20/2022 Orders Only [facility] [address] [place] [address] Claudia Billingsley LPN Social History Tobacco Use [...] Orientation Straight 02/05/2022 10 :33 AM EDT COVID-19 Exposure Response Date Recorded In the last 10 days, have yo u been in contact with someone who was confirmed or suspected to have Coronavirus/COVID-19? No / Unsure 06/21/2022 10:20 AM EDT documented as of this encounter Miscellaneous Notes * Result Encounter Note - Abby Emeyr MD - 07/20/2022 11:00 AM EDT MRI of the L-spine on 07/20/22 showed DDD L-spine with foraminal stenosis, radiculopathy and narrowing of the spinal canal without compression. This is similar to the situation of her C-spine, but thelumbar spine changes will cause LBP, leg weakness and most of the LE sxs she has. Please call her and let her know that I can refer her to pain clinic as epidural injections can significantly decrease inflammation and pain on lumbar spine therefore sxs on LB and LE, if pain is otherwise improving and she wants to wait to fu with me is ok. Let me know if she wants referral to Pain clinic. Please make sure she's going to PT for her neck (sent at last appt) documented in this encounter Plan of Treatment Not on file documented as of this encounter Procedures Procedure Name Priority Date/Time Associated Diagnosis Comments BI MAMMOGRAM SCREENING TOMOSYNTHESIS BILATERAL Routine 07/31/2022 7:56 AM EDT MR LUMBAR SPINE WO CONTRAST Routine 07/20/2022 12:09 PM EDT documented in this encounter Results * BI Mammogram Screening Tomosynthesis Bilateral (07/31/2022 7:56 AM EDT) Anatomical Region Laterality Modality Breast Bilateral Mammography 07/31/2022 7:56 AM EDT Narrative 08/01/2022 3:14 PM EDT ? [facility] [place] ? [address] [facility] ?[place] [address] ? Mammography Report ? Signed ? Patient: John Rasheed,Jessica ?MR#: ?? [id number] ? : 1955 ?Acct:[id number] ? Age/Sex: 67 / F ?ADM Date: 04/25/23 ? Loc: HO.MAMMO ? Attending Dr: Abby Emery MD ? Ordering Physician: Abby Emery MD ?Results: 1Ne ?? gative ? Date of Service: 07/31/22 ?Follow Up: 1 Year From Orig ?? inal Mammogram ? Procedure(s): MM tomosynthesis screening BI ?? Accession Number(s): [id number] ? cc: Abby Emery MD ? EXAMINATION: ?? MM SCREENING DIGITAL BREAST TOMOSYNTHESIS, BILATERAL ? CLINICAL INFORMATION: ? Screening. Asymptomatic. ? The lifetime risk of breast cancer based on the Tyrer-Cuzick Model is ?? 3.2%. ? COMPARISON: ?? Mammography: July 26, 2021 and studies dating back to May 06, 2017 ? TECHNIQUE: ?? Digital breast tomosynthesis is [...] tomosynthesis screening BI ?? IMPRESSION: ?? No significant changes from prior exam. ? ASSESSMENT: ? BI-RADS 1: Negative ? RECOMMENDATION: ?? Routine annual mammography screening. ? This patient's information was entered into a reminder system with a ?? target due date for their next mammogram. ? Dictated By: ?Remberto Rodriguez MD ? Signed By: ?<Electronically signed by Remberto Rodriguez MD in OV> ?// 1512 ? DD/DT: //23 0756 ? TD/TT: ? Park Guide: SK ? Procedure Note Donotuseinterpreter, Image - 10/04/2022 [facility] [address] [place] [address] Mammography Report Signed Patient: Ancelmo Ochoa#: [id number] : 5Acct:[id number] Age/Sex: 67 / FADM Date: 07/31/22 Loc: HO.MAMMO Attending Dr: Abby Emery MD Ordering Physician: Abby Emery MDResults: 1Ne gative Date of Service: 07/31/22Follow Up: 1 Year From Orig inal Mammogram Procedure(s): MM tomosynthesis screening BI Accession Number(s): [id number] cc: Abby Emery MD EXAMINATION: MM SCREENING DIGITAL BREAST TOMOSYNTHESIS, BILATERAL CLINICAL INFORMATION: Screening. Asymptomatic. The lifetime risk of breast cancer based on the Tyrer-Cuzick Model is 3.2%. COMPARISON: Mammography: July 26, 2021 and studies dating back to May 06, 2017 TECHNIQUE: Digital breast tomosynthesis is performed in both the craniocaudal and mediolateral oblique views along with computer-aided detection (CAD). Synthesized 2D images are generated from the tomosynthesis. FINDINGS: There are scattered areas of fibroglandular density (ACR BI-RADS breast composition Category b). There are no significant masses, abnormal calcifications, or other abnormalities. MM/MM tomosynthesis screening BI IMPRESSION: No significant changes from prior exam. ASSESSMENT: BI-RADS 1: Negative RECOMMENDATION: Routine annual mammography screening. This patient's information was entered into a reminder system with a target due date for their next mammogram. Dictated By: Remberto Rodriguez MD Signed By: <Electronically signed by Remberto Rodriguez MD in OV> 08/01/22 0529 DD/ 0756 TD/TT: Park Guide: BLAKE [facility] External Provider IMG BI PROCEDURES Edited Result - Final * MR Lumbar Spine w/o Contrast (07/20/2022 12:09 PM EDT) Anatomical Region Laterality Modality Spine, L-spine Magnetic Resonan ce 07/20/2022 12:0 9 PM EDT Narrative 08/01/2022 6:44 PM EDT ? [facility] ?[address] ?[place] [address] ? Magnetic Resonance Report ? Signed ? Patient: John Rasheed,Jessica ?MR#: ?? [id number] ? : 1955 ?Acct:[id number] ? Age/Sex: 67 / F ?ADM Date: 07/20/22 ? Loc: HO.MRI ? Attending Dr: Abby Emery MD ? Ordering Physician: Abby Emery MD ?? Date of Service: 07/20/22 ?? Procedure(s): MR lumbar spine wo con ?? Accession Number(s): [id number] ? cc: Abby Emery MD ? EXAMINATION: ?? MR LUMBAR SPINE WITHOUT CONTRAST ? CLINICAL INFORMATION: ?? Low back and leg pain. Claudication/gait disturbances. ? COMPARISON: ?? None ? TECHNIQUE: ?? MRI of the lumbar spine was obtained using routine sequences without ?? contrast. ? FINDINGS: ?? The lumbar vertebral bodies maintain normal heights. There is mild ?? anterolisthesis of L4 on L5 and L5 on S1. There is severe disc height ?? loss at L5-S1. A hypoplastic disc is seen at the S1-S2 level. There is ?? no bone marrow edema. The distal spinal cord appears normal. The conus ?? medullaris terminates normally at the L1-L2 level. ? The extraspinal soft tissues are unremarkable. ? SPINAL LEVELS: ? L1-L2: No posterior disc abnormality. No spinal canal or neural ?? foraminal stenosis. ? L2-L3: No posterior disc abnormality. No spinal canal or neural ?? foraminal stenosis. ? L3-L4: No posterior disc abnormality. No spinal canal or neural ?? foraminal stenosis. ? L4-L5: Mild anterolisthesis with severe facet arthropathy resulting in ?? mild spinal canal stenosis. Mild right neural foraminal stenosis with ?? abutment of the extraforaminal right L4 nerve root segment. ? L5-S1: Disc bulging with central protrusion with severe facet ?? arthropathy resulting in mild to moderate spinal canal stenosis and ?? bilateral subarticular stenosis with abutment of the traversing right ?? more than left S1 nerve root. Severe left neural foraminal stenosis ?? with compression of the exiting left L5 nerve root. ? S1-S2: Hypoplastic disc. No spinal canal or neural foraminal stenosis. ? MR/MR lumbar spine wo con ?? IMPRESSION: ?? 1. ??Transitional lumbosacral anatomy with hypoplastic disc seen at ?? S1-S2. ?? 2. ??At L4-L5 there is mild anterolisthesis related to severe facet ?? arthropathy resulting in mild spinal canal stenosis and abutment of the ?? extraforaminal right L4 nerve root segment. ?? 3. ??At L5-S1 there is mild to moderate spinal canal stenosis and ?? bilateral subarticular stenosis with abutment of the traversing right ?? more than left S1 nerve roots. Severe left neural foraminal stenosis ?? with compression of the exiting left L5 nerve root. ? Dictated By: ?ROXANNE PICKETT MD ? Signed By: ?<Electronically signed by ROXANNE PICKETT MD in OV> ? 08/01/22 1841 ? DD/ 1209 ? TD/TT: ? Park Guide: ZZ ? Procedure Note Donjackiejoanjeffter, Image - 08/28/2022 [place] [address] Magnetic Resonance Report Signed Patient: Ancelmo Ochoa#: [id number] : 5Acct:[id number] Age/Sex: 67 / FADM Date: 07/20/22 Loc: HO.MRI Attending Dr: Abby Emery MD Ordering Physician: Abby Emery MD Date of Service: 07/20/22 Procedure(s): MR lumbar spine wo con Accession Number(s): [id number] cc: Abby Emery MD EXAMINATION: MR LUMBAR SPINE WITHOUT CONTRAST CLINICAL INFORMATION: Low back and leg pain. Claudication/gait disturbances. COMPARISON: None TECHNIQUE: MRI of the lumbar spine was obtained using routine sequences without contrast. FINDINGS: The lumbar vertebral bodies maintain normal heights. There is mild anterolisthesis of L4 on L5 and L5 on S1. There is severe disc height loss at L5-S1. A hypoplastic disc is seen at the S1-S2 level. There is no bone marrow edema. The distal spinal cord appears normal. The conus medullaris terminates normally at the L1-L2 level. The extraspinal soft tissues are unremarkable. SPINAL LEVELS: L1-L2: No posterior disc abnormality. No spinal canal or neural foraminal stenosis. L2-L3: No posterior disc abnormality. No spinal canal or neural foraminal stenosis. L3-L4: No posterior disc abnormality. No spinal canal or neural foraminal stenosis. L4-L5: Mild anterolisthesis with severe facet arthropathy resulting in mild spinal canal stenosis. Mild right neural foraminal stenosis with abutment of the extraforaminal right L4 nerve root segment. L5-S1: Disc bulging with central protrusion with severe facet arthropathy resulting in mild to moderate spinal canal stenosis and bilateral subarticular stenosis with abutment of the traversing right more than left S1 nerve root. Severe left neural foraminal stenosis with compression of the exiting left L5 nerve root. S1-S2: Hypoplastic disc. No spinal canal or neural foraminal stenosis. MR/MR lumbar spine wo con IMPRESSION: 1. 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 2. At L4-L5 there is mild anterolisthesis related to severe facet arthropathy resulting in mild spinal canal stenosis and abutment of the extraforaminal right L4 nerve root segment. 3. At L5-S1 there is mild to moderate spinal canal stenosis and bilateral subarticular stenosis with abutment of the traversing right more than left S1 nerve roots. Severe left neural foraminal stenosis with compression of the exiting left L5 nerve root. Dictated By: ROXANNE PICKETT MD Signed By: <Electronically signed by ROXANNE PICKETT MD in OV> 08/01/22 1841 DD/ 1209 TD/TT: Park Guide: DEXTER [facility] External Provider IMG MRI PROCEDURES Edited Result - Final documented in this encounter Visit Diagnoses Not on filedocumented in this encounter Additional Health Concerns Assessment Noted Time PHQ-9 Depression Total Score: 21 023 10:45 AM EDT documented as of this encounter Care Teams Peripheral Edp Equipment Operator Relationship Specialty Start Date End Date Abby Emery MD [address] [place] [address] PCP - General Family Medicine 06/06/18 documented as of this encounter
--- OUTSIDE RECORDS SUMMARY | 2024-07-28 08:46 | XMS_ITS | Encounter Summary ---
Author Organization [employer] [facility] Address [address] [place] [address] [address] [place] [address] Care Team Providers Care Channel Marketing Coordinator Name Role Phone Abby Emery MD Primary Care Provider + Reason for Visit * Reason Comments Med Refill Encounter Details Date Type Department Care Team ([facility] st Contact Info) Description 10/08/2022 Refill [facility] MEDICINE [address] [place] [address] Abby Emery MD [address] [place] [address] Social History Tobacco Use Types Packs/Day Years [...] Noted Time PHQ-9 Depression Total Score: 21 06/21/ 023 10:45 AM EDT documented as of this encounter Care Teams Channel Marketing Coordinator Relationship Specialty Start Date End Date Abby Emery MD [address] [place] [address] PCP - General Family Medicine 06/06/18 documented as of this encounter
--- OUTSIDE RECORDS SUMMARY | 2024-07-28 08:46 | XMS_ITS | Encounter Summary ---
Author Organization [employer] Address [address] [facility] 7t [place] [address] Care Team Providers Care Fuel Yard Operator Name Role Phone Abby Emery MD Primary Care Provider + Encounter Details Date Type Department Care Team (Latest Contact Info) Description 07/24/2024 Travel Social History Tobacco Use Types Packs/Day Years [...] documented as of this encounter Care Teams Fuel Yard Operator Relationship Specialty Start Date End Date Abby Emery MD [address] [place] [address] PCP - General Family Medicine 06/06/18 documented as of this encounter
--- OUTSIDE RECORDS SUMMARY | 2024-07-28 08:46 | XMS_ITS | Encounter Summary ---
Author Organization [facility] Address [address] [place] [address] 7t [place] [address] Care Team Providers Care Ice Crusher Name Role Phone Abby Emery MD Primary Care Provider + Reason for Visit * Reason Onset Date Comments Triage 06/12/2022 Encounter Details Date Type Department Care Team ([facility] st Contact Info) Description 06/12/[address] [facility] MEDICINE [address] [place], [place] [phone] Abby Emery MD [address] [place], [place] [phone] Triage Social History Tobacco Use Types Packs/Day Years [...] encounter Miscellaneous Notes * Telephone Encounter - Pepper Casey RN - 06/12/2022 10:27 AM EST Triage call with [employer] Interactive Art Director ID [id number] Pt son Kiran took the call, Son reports that Pt was calling about glasses but, it had been taken care of. No further triage needed. Protocol Used: No Contact or Duplicate Contact Call (Adult) Protocol-Based Disposition: No Contact Call Positive Triage Question: * Message left with person in household * All higher-acuity triage questions were negative * Telephone Encounter - Laura Hanks - 06/12/2022 10:06 AM EST Symptom: Eye Pain - Not From Injury Outcome: Schedule an urgent appointment (within 4 hours) or talk to a nurse or provider soon Reason: Getting worse The caller accepted this outcome Please contact pt [phone] Cook Islander Speaker documented in this encounter Plan of Treatment Not on file documented as of this encounter Visit Diagnoses Not on filedocumented in this encounter Care Teams Ice Crusher Relationship Specialty Start Date End Date Abby Emery MD [address] [place] [address] PCP - General Family Medicine 06/06/18 documented as of this encounter
--- OUTSIDE RECORDS SUMMARY | 2024-07-28 08:46 | XMS_ITS | Encounter Summary ---
Author Organization [employer] Address [address] [facility] 7t [place] [address] Care Team Providers Care Pta Name Role Phone Abby Emery MD Primary Care Provider + Reason for Visit * Reason Comments Med Refill Encounter Details Date Type Department Care Team ([facility] st Contact Info) Description 03/08/2023 Refill [facility] MEDICINE [address] [place], [place] [phone] Abby Emery MD [address] [place] [address] Type 2 diabetes mellitus without complication, without long-term current use of insulin ([facility]); HTN (hypertension), benign Social History Tobacco Use Types Packs/Day Years [...] as of this encounter Visit Diagnoses Diagnosis Type 2 diabetes mellitus without complication, without long-term current use of insulin ([facility]) HTN (hypertension), benign Essential hypertension, benign documented in this encounter Additional Health Concerns Assessment Noted Time PHQ-9 Depression Total Score: 21 023 10:45 AM EDT documented as of this encounter Care Teams Pta Relationship Specialty Start Date End Date Abby Emery MD [address] [place] [id number] PCP - General Family Medicine 06/06/18 documented as of this encounter
[2024-07-28 12:18] LABS: Alanine Aminotransferase 26 U/L (0-31); Albumin Level 4.5 g/dL (3.5-5.0); Alkaline Phosphatase 84 U/L (39-117); Anion Gap 14 (12-20); Aspartate Amino Transferase 30 U/L (5-31); Bilirubin Total 0.5 mg/dL (0.0-1.0); Blood Urea Nitrogen 20 mg/dL (9-16); Calcium 9.7 mg/dL (8.4-10.2); Carbon Dioxide 28 mmol/L (22-29); Chloride 107 mmol/L (96-108); Cholesterol 189 mg/dL (<200); Estimated Glomerular Filt Rate > 60; Glucose Random 147 mg/dL (60-115); HDL Cholesterol 55 mg/dL (>40); LDL Cholesterol Calculated 116 mg/dL (<100); Potassium 4.5 mmol/L (3.3-5.1); Sodium 144 mmol/L (135-145); TSH reflex Free T4 2.14 uIU/mL (0.32-4.0); Total Protein 7.7 g/dL (6.5-8.0); Triglycerides 90 mg/dL (<150); Vitamin D 25-OH Total 46.3 ng/mL (>30)
[2024-07-28 12:26] LABS: Creatinine Urine 147.08 mg/dL; Microalbum/Creatinine Ratio Ur 8.8 ug/mg cr (<30)
[2024-07-28 13:44] LABS: Reflex LDLD? No
== END 2024-07-28 08:26 | disposition home or self-care (01) ==
LOC: HO.HHCL 08:25
PROVIDERS: Visit Provider Internal Medicine
DX: E11.69 Type 2 diabetes mellitus with other specified complication (principal); E78.5 Hyperlipidemia, unspecified; E11.9 Type 2 diabetes mellitus without complications
CPT/HCPCS: 36415; 80053; 80061; 82043; 82306; 82570; 84443

== ENCOUNTER 2024-10-30 09:18 | Outpatient (REF) | payer OTHER, SELFPAY ==
--- NOTE | ~2024-10-30 | XR_ITS ---
EXAMINATION: XR HAND, LEFT CLINICAL INFORMATION: pain, no trauma or injury COMPARISON: None available. TECHNIQUE: PA, lateral, and oblique views of the left hand. FINDINGS: Joint spaces are preserved. Minimal marginal osteophyte formation is present at the second metacarpophalangeal joint. 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 Electronically signed by: Moris Mckay MD 10/30/2024 09:49 AM EDT
--- OUTSIDE RECORDS SUMMARY | 2024-10-30 09:33 | XMS_ITS | Encounter Summary ---
Author Organization [employer] Address [address] [facility] 7t [place] [address] Care Team Providers Care Biopharmaceutical Rep Name Role Phone Abby Emery MD Primary Care Provider + Encounter Details Date Type Department Care Team (Latest Contact Info) Description 10/30/2024 Travel Social History Tobacco Use Types Packs/Day [...] documented as of this encounter Care Teams Biopharmaceutical Rep Relationship Specialty Start Date End Date Abby Emery MD [address] [place] [address] PCP - General Family Medicine 06/06/18 documented as of this encounter
--- OUTSIDE RECORDS SUMMARY | 2024-10-30 09:33 | XMS_ITS | Clinical Summary ---
Author Organization [employer] [facility] Address [address] [place] [address] Care Team Providers Care Hvac Specialist Name Role Phone Unavailable Primary Care Provider [...] Vaccines (1 of 2) 2005 COVID-19 Vaccine (1 - 2023-2 5 season) 2023 Depression Screening 04/08/2024 Influenza Vaccine (#1) 2024 RSV Immunization Adult Patie nts (1 [...]
== END 2024-10-30 09:19 | disposition home or self-care (01) ==
LOC: HO.HHCX 09:18
PROVIDERS: Visit Provider Internal Medicine
DX: M79.642 Pain in left hand (principal)
CPT/HCPCS: 73130

== ENCOUNTER → 2024-10-30 09:19 | Outpatient (BNV) | payer OTHER, SELFPAY | PROVIDERS: Visit Provider Radiology Diagnostic Radiology | DX: M19.042 Primary osteoarthritis, left hand (principal) | CPT/HCPCS: 73130 ==